=== PATIENT | female | born 1985 | race Caucasian/White ===

== ENCOUNTER 2021-02-03 08:15 | Emergency (ER) | payer OTHER, SELFPAY ==
[2021-02-03 08:58] VITALS: BP 125/90; PULSE 81; RESP 16; TEMP 35.9; O2SAT 100
--- NOTE | 2021-02-03 09:49 | ED.UPPEXIN ---
HPI - Extremity Injury (Upper) General Chief Complaint: Extremity Injury, Upper Stated Complaint: NUMBNESS RIGHT ARM/HAND Time Seen by Provider: 02/03/21 09:27 Source: patient and RN notes reviewed Mode of arrival: ambulatory Limitations: no limitations History of Present Illness HPI narrative: Patient presents today complaining of bilateral tingling of the hands and forearms. 2 days ago, she experienced tingling in her left hand that lasted 1 minute and then resolved. Yesterday she experienced tingling in her right forearm improved. Today she is now experiencing tingling in the bilateral posterior shoulders that is extending down to the forearms and bilateral hands. Denies any additional symptoms. Denies any injuries, recent heavy lifting or twisting. Denies any pain. Denies weakness, chest pain, shortness of breath, headache, abdominal pain, nausea or vomiting, neck pain. She has tried no interventions at home for her symptoms. Related Data Home Medications Medication Instructions Recorded Confirmed norethindrone-ethin estradiol 1 tablet PO DAILY 02/03/21 02/03/21 [Nortrel 0.5/35 (28)] Allergies Allergy/AdvReac Type Severity Reaction Status Date / Time No Known Allergies Allergy Verified 02/03/21 09:04 Review of Systems Review of Systems: Narrative: CONSTITUTIONAL: Denies body aches, fever, chills, or sweats. EYES: Denies visual changes, redness, or discharge. ENT: Denies rhinorrhea, congestion, sore throat, or otalgia. CARDIOVASCULAR: Denies chest pain, palpitations, or edema. RESPIRATORY: Denies cough or dyspnea. GASTROINTESTINAL: Denies abdominal pain, nausea, vomiting, or diarrhea. GENITOURINARY: Denies dysuria or hematuria. SKIN: Denies rash, itching, or wounds. MUSCULOSKELETAL: Denies back pain, joint pain, or myalgia. NEUROLOGIC: Denies headache, numbness, or weakness. + Tingling in the bilateral arms and hands PSYCH: Denies depression or anxiety. [facility] Social History Social History Gender identity (if verbalized by the patient): Female Comments At time of signature, I have reviewed and agree with nursing past medical, surgical, social and family history unless otherwise noted. Please see nursing chart for further information. There is no relevant family history pertinent to the presenting complaint Exam Narrative: Exam Narrative: GENERAL: Well-appearing, well-nourished, and in no acute distress. HEAD: Normocephalic, atraumatic. EYES: EOMI. No redness or drainage. Conjunctivae normal. ENT: Mucous membranes pink and moist. NECK: Normal AROM without pain. Nontender. Supple. No lymphadenopathy. CHEST: No respiratory distress. MUSCULOSKELETAL: No bony tenderness of the cervical, thoracic, or lumbar spine. EXTREMITIES: Full range of motion of bilateral shoulders, elbows, wrist, and all fingers. Handgrips equal and strong. Bicep strength strong against resistance. Distal sensation intact. Capillary refill normal. Radial pulses normal. Trapezius muscles are nontender. SKIN: Warm, dry, no rash. Capillary refill normal. Normal skin turgor. NEURO: No focal deficits. Alert and oriented x3. Gait steady. PSYCH: Very anxious Course Vital Signs Vital signs: Vital Signs Temperature 96.7 F L 02/03/21 08:58 Pulse Rate 81 02/03/21 08:58 Respiratory Rate 16 02/03/21 08:58 Blood Pressure 125/90 02/03/21 08:58 Pulse Oximetry 100 02/03/21 08:58 Temperature 96.7 F L 02/03/21 08:58 Pulse Rate 81 02/03/21 08:58 Respiratory Rate 16 02/03/21 08:58 Blood Pressure 125/90 02/03/21 08:58 Pulse Oximetry 100 02/03/21 08:58 Reviewed. Pt has been instructed to follow up with her PCP regarding her elevated blood pressure today. MDM - Extremity Injury (Upper) Differential Diagnosis Differential diagnosis: Likely other (Cervical radiculopathy, muscle spasm, pinched nerve, anxiety) Critical Care Time Critical Ca
== END 2021-02-03 09:57 | disposition home or self-care (01) ==
PROVIDERS: Emergency Provider Nurse Practitioner
DX: M54.12 Radiculopathy, cervical region (principal)
CPT/HCPCS: 99213; G0463

== ENCOUNTER 2021-09-20 13:15 | Outpatient (CLI) | payer OTHER, SELFPAY ==
--- NOTE | ~2021-09-20 | XR_ITS ---
EXAMINATION: XR lumbar spine 2-3V DATE: 09/20/2021 14:06 INDICATION: Myalgia. TECHNIQUE: 3 views of lumbar spine were obtained. COMPARISON: None. FINDINGS: There is 3 degrees dextrocurvature of lumbar spine. Vertebral body heights and intervertebr al disc heights are normal. The facet joints are normal. IMPRESSION: 1. No etiology for the patient's symptoms. Reviewed, dictated and finalized at location A. R ENERGY ENGINEER
--- NOTE | ~2021-09-20 | XR_ITS ---
EXAMINATION: XR thoracic spine 3V DATE: 09/20/2021 14:06 INDICATION: Myalgia. TECHNIQUE: 3 views of thoracic spine were obtained. COMPARISON: None. FINDINGS: There is 4 degrees dextrocurvature of thoracic spine. Vertebral body heights and interverte bral disc heights are normal. There are small endplate osteophytes at multiple levels in mid thoracic spine. IMPRESSION: 1. Mild thoracic spondylosis. Reviewed, dictated and finalized at location A. AL EQUIPMENT TECHNICIAN
--- NOTE | ~2021-09-20 | XR_ITS ---
EXAMINATION: XR cervical spine 4-5V DATE: 09/20/2021 14:06 INDICATION: Myalgia. TECHNIQUE: 4 views of cervical spine were obtained. COMPARISON: None. FINDINGS: There is 4 degrees levocurvature of cervicothoracic spine. Vertebral body heights and inter vertebral disc heights are normal. The facet joints are normal. No central canal stenosis or preverte bral soft tissue swelling. IMPRESSION: 1. No etiology for the patient's symptoms. Reviewed, dictated and finalized at location A. GER WELDING
== END 2021-09-20 13:16 | disposition home or self-care (01) ==
LOC: ANHIMG 13:26
PROVIDERS: PCP Family Medicine; Visit Provider Nurse Practitioner Family
DX: M79.10 Myalgia, unspecified site (principal); M47.814 Spondylosis without myelopathy or radiculopathy, thoracic region
CPT/HCPCS: 72050; 72072; 72100

== ENCOUNTER 2021-10-21 17:00 | Observation (INO) | payer OTHER, SELFPAY ==
--- NOTE | ~2021-10-21 | MR_ITS ---
EXAMINATION: MR cervical spine wo/w con DATE: 10/22/2021 13:06 INDICATION: Intermittent weakness and numbness. TECHNIQUE: Magnetic resonance imaging (MRI) of the cervical spine was performed without and with 13 m L MultiHance intravenous contrast. Sequences included sagittal and axial T2-weighted FSE, sagittal ST IR FSE, and sagittal and axial T1-weighted FSE. Postcontrast sequences included sagittal and axial T1 -weighted FS FSE. COMPARISON: None FINDINGS: Bone alignment is normal. Vertebral body heights and intervertebral disc heights are normal . The spinal cord signal intensity is normal. The following disc levels are specifically discussed: C2-C3: The disc does not extend beyond the endplate margin. There is no uncovertebral joint osteoarth ritis. There is no facet joint osteoarthritis. There is no neural foraminal stenosis. There is no miko tral canal stenosis. C3-C4: The disc does not extend beyond the endplate margin. There is no uncovertebral joint osteoarth ritis. There is mild bilateral facet joint osteoarthritis. There is no neural foraminal stenosis. The re is no central canal stenosis. C4-C5 through C6-C7: The disc does not extend beyond the endplate margin. There is no uncovertebral j oint osteoarthritis. There is no facet joint osteoarthritis. There is no neural foraminal stenosis. T here is no central canal stenosis. C7-T1: The disc does not extend beyond the endplate margin. There is no uncovertebral joint osteoarth ritis. There is mild bilateral facet joint osteoarthritis. There is no neural foraminal stenosis. The re is no central canal stenosis. IMPRESSION: 1. Normal spinal cord. Reviewed, dictated and finalized at location A. IGERATION SERVICE TECHNICIAN IMPRESSION: 1. Normal spinal cord.
--- NOTE | ~2021-10-21 | CT_ITS ---
EXAMINATION: CTA brain carotid DATE: 10/22/2021 14:36 INDICATION: Slurred speech. Right hand numbness. TECHNIQUE: Computed tomographic angiography (CTA) of the head was performed without and with 100 mL O mnipaque-350 intravenous contrast. CTA of the neck was performed with intravenous contrast. Automated exposure control and iterative reconstruction technique were employed. The dose-length product was 1 593.60 mGy-cm. Maximum intensity projection and volume rendered 3D-reconstructions were created by angélica herrera technologist on a separate workstation. COMPARISON: Brain MRI 10/22/2021, head CT 10/21/2021 FINDINGS: HEAD CTA: There is no intracranial hemorrhage, acute infarction, or abnormal intracranial mass lesion . The ventricles are normal in size. The paranasal sinuses are clear. The mastoid air cells are vanda l. The orbits are normal. Left vertebral artery is dominant. There is no significant stenosis of basi lar artery or the posterior cerebral arteries. There is no significant stenosis of the intracranial i nternal carotid arteries or anterior or middle cerebral arteries. The posterior communicating arterie s are normal. The anterior communicating artery is normal. No aneurysm. NECK CTA: There are no pathologically enlarged lymph nodes. There is no significant stenosis of the v ertebral arteries. There is mild plaque in the proximal internal carotid arteries. There is 0% stenos is of the proximal right internal carotid artery relative to normal distal artery lumen diameter (RAFAEL CET criteria). There is 0% stenosis of the proximal left internal carotid artery relative to normal d istal artery lumen diameter. The bones are unremarkable. IMPRESSION: 1. Normal brain. The small acute infarcts seen by MRI are not visible. 2. No aneurysm or significant intracranial arterial stenosis. 3. 0% stenosis of the proximal internal carotid arteries relative to normal distal artery lumen diame ters (NASCET criteria). Reviewed, dictated and finalized at location A. SCALER IMPRESSION: 1. Normal brain. The small acute infarcts seen by MRI are not visible. 2. No aneurysm or significant intracranial arterial stenosis. 3. 0% stenosis of the proximal internal carotid arteries relative to normal dis cindy artery lumen diameters (NASCET criteria).
--- NOTE | ~2021-10-21 | CT_ITS ---
EXAMINATION: CT brain wo con INDICATION: Aphasia, dizziness, numbness of the hands and feet COMPARISON: None TECHNIQUE: Standard unenhanced head CT. The dose-length product (DLP) was 605.33 mGy-cm. The mA was a djusted according to patient size. Iterative reconstruction technique was employed. FINDINGS: There is no intracranial hemorrhage, acute infarction, or abnormal mass lesion. The ventric les are normal. There is no abnormal mass effect or midline shift. The wilkes-white matter differentiat ion is normal. The basal cisterns are patent. The orbits are normal. The paranasal sinuses, mastoids and calvarium are normal. IMPRESSION: 1. No acute intracranial abnormality. Reviewed, dictated and finalized at location F. ICAL ADMINISTRATOR
--- NOTE | ~2021-10-21 | MR_ITS ---
EXAMINATION: MR brain/brain stem wo/w con DATE: 10/22/2021 13:06 INDICATION: Stroke. Slurred speech. Hand weakness. TECHNIQUE: Magnetic resonance imaging (MRI) of the brain and brainstem was performed without and with 13 mL MultiHance intravenous contrast. Sequences included sagittal and axial T1-weighted FLAIR, axia l T1-weighted FSE, axial diffusion-weighted FS EPI, sagittal T2-weighted FLAIR, axial T2*-weighted GR E, axial T2-weighted FLAIR Propeller, and axial T2-weighted Propeller. Postcontrast sequences include d axial, coronal, and sagittal T1-weighted FSE. Apparent diffusion coefficient (ADC) maps were create d. COMPARISON: Head CT 10/21/2021 FINDINGS: There are a few acute cortical infarcts involving the right frontal and parietal lobes. The re are scattered areas of nonspecific increased T2-weighted signal intensity in the cerebral white ma tter. There is no intracranial hemorrhage or abnormal mass lesion. The ventricles are normal in size . The orbits are normal. The paranasal sinuses are clear. The mastoid air cells are normal. IMPRESSION: 1. 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 2. Mild nonspecific cerebral white matter disease. The differential diagnosis includes premature chronometer assembler and adjuster macie small vessel ischemic disease (especially if the patient has cardiovascular risk factors), demyel inating disease such as multiple sclerosis, drug abuse, vasculitis, or reactive astrocytosis (gliosis ) secondary to nonspecific etiology. Reviewed, dictated and finalized at location A. GENCY ROOM SPECIALIST IMPRESSION: 1. 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 2. Mild nonspecific cerebral white matter disease. The differential diagnosis i ncludes premature chronic small vessel ischemic disease (especially if the leisa ent has cardiovascular risk factors), demyelinating disease such as multiple sc lerosis, drug abuse, vasculitis, or reactive astrocytosis (gliosis) secondary t o nonspecific etiology.
--- NOTE | ~2021-10-21 | XR_ITS ---
EXAMINATION: XR chest 2V DATE: 10/21/2021 22:02 INDICATION: Strokelike symptoms TECHNIQUE: PA and lateral views of the chest are obtained. COMPARISON: None available FINDINGS: The lungs are free of acute opacities. There is no pleural effusion or pneumothorax. The ca rdiomediastinal silhouette is normal. The visualized bones and soft tissues are unremarkable. IMPRESSION: 1. No acute cardiopulmonary abnormality. Reviewed, dictated and finalized at location F. RAFT ENGINEER
--- NOTE | ~2021-10-21 | US_ITS ---
EXAMINATION: US carotid duplex BI DATE: 10/22/2021 13:09 INDICATION: Acute infarcts involving the right frontal and parietal lobes. Transient ischemic attack. TECHNIQUE: Grayscale, color Doppler, and pulsed Doppler images of the cervical carotid arteries were obtained. The degree of vessel stenosis is placed in one of the following categories: normal, <50%, 5 0-69%, >=70% but less than near-occlusion, near-occlusion, or total occlusion. Note that percent sten osis relative to normal distal artery lumen diameter is indirectly measured from velocity measurement s as described by Demetrius, et al. Radiology 2003; 229:340-346. COMPARISON: None. FINDINGS: RIGHT: The right common carotid artery (CCA) peak systolic velocity (PSV) is 89 cm/s. The right internal car otid artery (ICA) PSV is 108 cm/s. The right ICA end-diastolic velocity (EDV) is 44 cm/s. The right I CA/CCA PSV ratio is 1.2. Grayscale and color Doppler images yield an estimate of <50% diameter reduct ion from plaque in the ICA. There is antegrade flow in the right vertebral artery. LEFT: The left CCA PSV is 105 cm/s. The left ICA PSV is 73 cm/s. The left ICA EDV is 30 cm/s. The left ICA/ CCA PSV ratio is 0.7. Grayscale and color Doppler images yield an estimate of <50% diameter reduction from plaque in the ICA. There is antegrade flow in the left vertebral artery. IMPRESSION: 1. <50% stenosis in the right internal carotid artery. 2. <50% stenosis in the left internal carotid artery. Reviewed, dictated and finalized at location A. H MACHINE OPERATOR
[2021-10-21 17:08] VITALS: BP 142/94; PULSE 100; RESP 18; TEMP 36.4; O2SAT 98
[2021-10-21 19:22] VITALS: BP 198/82; PULSE 112; RESP 16; O2SAT 99
--- NOTE | 2021-10-21 21:53 | ECG_ITS ---
Measurements Intervals [place] Rate: 77 P: 57 HI: 137 QRS: 54 QRSD: 84 T: 29 QT: 367 QTc: 416 Interpretive Statements SINUS RHYTHM BASELINE ARTIFACT- I, II, III, AVR, AVL, AVF, V1-V6 NORMAL ECG Electronically Signed On 10-22-2021 6:41:46 CHIEF METEOROLOGIST by Clive Valencia D.O.
[2021-10-21 22:35] LABS: Basophils Percent Auto 0.4 % (0.2-1.2); Eosinophils Percent Auto 0.1 % (0-4.4); Hematocrit 39.6 % (37.0-47.0); Hemoglobin 13.3 g/dL (12.0-15.0); Immature Granulocyte Absolute 0.01 K/mm3 (0.00-0.031); Immature Granulocyte Percent A 0.1 % (0-0.5); Lymphocytes Absolute Auto 2.11 K/mm3 (0.9-3.2); Lymphocytes Percent Auto 26.5 % (18.3-44.2); Mean Corpuscular HGB Conc 33.6 g/dl (32-36); Mean Corpuscular Hemoglobin 31.5 pg (26-34); Mean Corpuscular Volume 93.8 fl (80-100); Mean Platelet Volume 10.7 fl (7.4-10.4); Monocytes Absolute Auto 0.4 K/mm3 (0.1-0.6); Monocytes Percent Auto 5.5 % (2.6-8.5); Neutrophils Absolute Auto 5.4 K/mm3 (1.3-6.7); Neutrophils Percent Auto 67.4 % (45.5-73.1); Platelet Count Result 248 k/mm3 (150-375); Red Blood Count 4.22 M/mm3 (4.2-5.4); Red Cell Distribution Width 11.2 % (11.5-14.5)
[2021-10-21 22:46] LABS: INR 1.1; Prothrombin Time 13.7 Seconds (11.1-14.7)
[2021-10-21 22:47] LABS: Partial Thromboplastin Time 25.6 SECONDS (22.3-36.8)
[2021-10-21 22:48] LABS: Alanine Aminotransferase 14 U/L (4-35); Albumin Level 4.8 g/dL (3.5-5.1); Alkaline Phosphatase 62 U/L (38-126); Anion Gap 7 mmol/L (8-16); Aspartate Amino Transferase 22 U/L (14-36); Bilirubin,Total 0.3 mg/dL (0.2-1.3); Blood Urea Nitrogen 10 mg/dL (7-17); Calcium 9.5 mg/dL (8.4-10.2); Carbon Dioxide 27 mmol/L (22-30); Chloride 106 mmol/L (98-107); Estimated CRCL calculation 90 ml/min; Estimated Glomerular Filt Rate > 60; Glucose 121 mg/dL (65-110); Potassium 3.6 mmol/L (3.4-5.0); Sodium 140 mmol/L (137-145)
[2021-10-21 22:59] LABS: Troponin I < 0.012 ng/mL (0.000-0.034)
[2021-10-21 23:37] LABS: Add Urine Microscopic? NO; Appearance Urine Clear (Clear); Bilirubin Urine Negative (Negative); Blood Urine Negative (Negative); Color Urine Colorless (Yellow); Glucose Urine UA Negative (Negative); Ketones Urine Negative (Negative); Leukocyte Esterase Ur Negative LEU/UL (Negative); Nitrate Urine Negative (Negative); Protein Urine Negative (Negative); Urobilinogen Urine Negative mg/dL (<2.0)
[2021-10-21 23:47] LABS: Specific Grav Ur 1.002 (1.001-1.035)
[2021-10-22] VITALS (9 sets, daily range): BP systolic 100–111; BP diastolic 57–72; PULSE 57–103; RESP 16–18; TEMP 36.4–36.9; O2SAT 99–100; BMI 24.2
--- NOTE | 2021-10-22 | ECHO_ITS ---
Patient Info Name: Stormy Mckenzie Age: 36 years : 1985 Gender: Female Ht: 66 in Wt: 149 lbs BSA: 1.78 m2 HR: 85 bpm BP: 110 / 68 mmHg Heart Rhythm: Sinus Rhythm Technical Quality: Fair Exam Date: 10/22/2021 1:41 PM Exam Location: [facility] Patient Status: Inpatient Admit Date: 10/22/2021 Staff Ordering Physician: Dane Camacho MD It Security Project Manager: Amie Dale RDCS Attending Provider: Jena Lopez DO Referring Physician: Janice HAMPTON; Exam Type: CA echo doppler color flow Study Info Indications - TIA Complete two-dimensional, color flow and Doppler transthoracic echocardiogram is performed. Summary 1. Complete two-dimensional, color flow and Doppler transthoracic echocardiogram is performed. 2. Normal echocardiogram. Left Ventricle Left ventricular chamber dimension is normal. Left ventricular systolic function is normal, estimated at 60-65%. The left ventricular diastolic function is normal. Right Ventricle Right ventricular chamber dimension is normal. Left Atria Left atrial chamber dimension is normal. Right Atria Right atrial chamber dimension is normal. Aortic Valve The aortic valve is normal. Pulmonic Valve The pulmonic valve is normal. Mitral Valve The mitral valve has normal leaflets. Tricuspid Valve The tricuspid valve leaflets are normal. Pericardium/Pleural The pericardium appears normal. Aorta The aortic root size at the sinus of Valsalva is normal. Left Ventricular Outflow Tract Name Value Normal LVOT 2D LVOT Diameter 2.0 cm LVOT Doppler LVOT Peak Gradient 4 mmHg LVOT Mean Gradient 2 mmHg LVOT VTI 19 cm LVOT VTI/AV VTI Ratio 0.8 LVOT Stroke Volume 62 ml LVOT CO 4.5 l/min LVOT CI 2.5 l/min/m2 Pulmonic Valve Name Value Normal RVOT Doppler RVOT Peak Gradient 3 mmHg PV Doppler PV Peak Gradient 4 mmHg Mitral Valve Name Value Normal MV Doppler MV Decel Arthur 601 cm/s2 MV PHT 40 ms MV Area (PHT) 5.5 cm2 4.0-5.0 MV Diastolic Function MV E Peak Velocity 83 cm/s MV A Peak Velocity 60 cm/s
--- NOTE | 2021-10-22 00:53 | ED.GENADULT ---
HPI - General Adult General Chief complaint: Dizziness Stated complaint: slurred speech, aphasia, dizziness, facial numbnes Time Seen by Provider: 10/21/21 21:30 History of Present Illness HPI narrative: Patient is a 36-year-old female who presents ER with neurologic concerns. She reports earlier today at work she had numbness of her left hand that caused her to be floppy. She also had slurred speech and a coworker told her they thought she may have some facial weakness on the right side. Symptoms lasted about 1 minute. She reports that she has history of intermittent numbness to her extremities has been ongoing over the last 6 months. She has had x-rays of her spine performed. She is recently supposed to have a CT scan of her spine performed. She has never had an MRI or scan of her brain. No headache/fever/chills. Related Data Home Medications Medication Instructions Recorded Confirmed norethindrone-ethin estradiol 1 tablet PO DAILY 02/03/21 10/22/21 [Nortrel 0.5/35 (28)] Allergies Allergy/AdvReac Type Severity Reaction Status Date / Time No Known Allergies Allergy Verified 02/03/21 09:04 Review of Systems Review of Systems: All systems reviewed & are unremarkable except as noted in HPI and below Constitutional: Constitutional: Denies chills, Denies fever(s) and Denies weakness ENT: Denies nasal congestion and Denies sore throat Cardiovascular: Cardiovascular: Denies chest pain, Denies rapid heart rate and Denies radiating jaw, neck or arm pain Respiratory: Respiratory: Denies cough, Denies dyspnea and Denies wheezing Gastrointestinal: Gastrointestinal: Denies abdominal pain, Denies nausea and Denies vomiting Neurologic: Denies headache(s), Reports focal weakness and Reports numbness Comments: Slurred speech [facility] Past Medical History Medical History (Updated 10/22/21 @ 07:23 by Grady Whitaker MD) Healthy female adult Surgical History Surgical History (Updated 10/22/21 @ 01:14 by Grady Whitaker MD) No history of previous surgery Family History Family History (Updated 10/22/21 @ 05:40 by Aleisha Gonzalez RN) Father Arthritis Mother Arthritis Depression Fibromyalgia Social History Social History Smoking status: Never smoker Second hand tobacco smoke exposure: No Alcohol intake: never Substance use: current Substance use type: marijuana Last use: 10/17/21 Gender identity (if verbalized by the patient): Female Spiritual care concerns: No Exam Narrative: GENERAL: Well-appearing, well-nourished, and in no acute distress. HEAD: Normocephalic, atraumatic. ENT: Mucous membranes moist. CHEST: Clear to auscultation. No respiratory distress. HEART: Regular rate and rhythm. Normal peripheral pulses. ABDOMEN: Soft, nontender, nondistended. EXTREMITIES: Normal range of motion. No edema. SKIN: Warm, dry, no rash. NEURO: Alert and oriented x3. No upper or lower extremity drift. Normal finger-nose testing. Cranial nerves II through XII intact. No expressive aphasia or dysarthria. PSYCH: Normal mood and affect. Course Course Emergency Course: Admit to hospitalist service. Patient does have strokelike symptoms but I am more concerned that she may have MS. Will require MRI of the head and neck. Vital Signs Vital signs: Vital Signs Temperature 97.5 F L 10/21/21 17:08 Pulse Rate 100 10/21/21 17:08 Respiratory Rate 18 10/21/21 17:08 Blood Pressure 142/94 H 10/21/21 17:08 Pulse Oximetry 98 10/21/21 17:08 Temperature 97.6 F 10/22/21 05:24 Pulse Rate 71 10/22/21 05:24 Respiratory Rate 18 10/22/21 05:53 Blood Pressure 110/68 10/22/21 05:24 Pulse Oximetry 99 10/22/21 05:53 Medical Decision Making Vital Signs Vital Signs: Vital Signs Temperature 97.5 F L 10/21/21 17:08 Pulse Rate 100 10/21/21 17:08 Respiratory Rate 18 10/21/21 17:08 Blood Pressure 142/
--- NOTE | 2021-10-22 05:00 | ADMGEN ---
This patient, Stormy Mckenzie, was admitted to Medical Room 343-01. Patient/family oriented to hospital policies and general routines including ID bracelet, bed and alarms, visiting hours, pain management, procedures, bathroom and other care routines, personal items, smoking policy, room service/diet, and visiting hours. Information on how to activate the Rapid Response Team has been discussed. Patient/Family are encouraged to report perceived risks to care and to ask questions if they do not understand what they are told or what they should do.
[2021-10-22] MEDS: ACETAMINOPHEN 325 MG TABLET 650 MG PO (05:31)
--- NOTE | 2021-10-22 10:30 | PM.IMHP ---
H&P: HPI History of Present Illness Date/Time: 10/22/21 10:30 Chief Complaint: Numbness of face Narrative: 36 years old female with no significant past medical history was admitted with complaint of having an episode at work lasting few minutes that involved weakness of the left hand and forearm, slurred speech and numbness of the face. This whole episode lasted for couple of minutes and the patient on arrival in the ER did not have any complaints. At present time patient is lying comfortably in the bed patient denies any numbness, tingling and weakness. Patient denies any shortness of breath or chest pain. Patient denies any nausea, vomiting, abdominal pain. Mood stable. Review of Systems Review of Systems: All systems reviewed & are unremarkable except as noted in HPI and below (the history and physical examination.) [facility] Past Medical History Medical History Healthy female adult Surgical History Surgical History No history of previous surgery Family History Family History Father Arthritis Mother Arthritis Depression Fibromyalgia Social History Social History Smoking status: Never smoker Second hand tobacco smoke exposure: No Alcohol intake: never Substance use: current Substance use type: marijuana Last use: 10/17/21 Gender identity (if verbalized by the patient): Female Spiritual care concerns: No Meds Home Medications and Allergies Home Medications Medication Instructions Recorded Confirmed Type norethindrone-ethin estradiol 1 tablet PO DAILY 02/03/21 10/22/21 History [Nortrel 0.5/35 (28)] Allergies Allergy/AdvReac Type Severity Reaction Status Date / Time No Known Allergies Allergy Verified 02/03/21 09:04 Vital Signs Vital Signs - 24 hr 10/21/21 17:08 10/21/21 19:22 10/22/21 03:47 Temperature 36.4 C L Pulse Rate 100 112 H 82 Respiratory Rate 18 16 18 Blood Pressure 142/94 H 198/82 H 109/58 L Pulse Oximetry 98 99 10/22/21 05:24 10/22/21 05:53 Temperature 36.4 C Pulse Rate 71 Respiratory Rate 18 18 Blood Pressure 110/68 Pulse Oximetry 99 99 Exam Narrative: ENERAL: Well-appearing, well-nourished, and in no acute distress. HEAD: Normocephalic, atraumatic. ENT: Mucous membranes moist. CHEST: Clear to auscultation. No respiratory distress. HEART: Regular rate and rhythm. Normal peripheral pulses. ABDOMEN: Soft, nontender, nondistended. EXTREMITIES: Normal range of motion. No edema. SKIN: Warm, dry, no rash. NEURO: Alert and oriented x3. No upper or lower extremity drift. Normal finger-nose testing. Cranial nerves II through XII intact. No expressive aphasia or dysarthria. PSYCH: Normal mood and affect. H&P: Results Labs Labs: Short CBC 10/21/21 Range/Units 22:22 WBC 8.0 (4.5-10.0) K/mm3 Hgb 13.3 (12.0-15.0) g/dL Hct 39.6 (37.0-47.0) % Plt Count 248 (150-375) k/mm3 BMP 10/21/21 22:22 Sodium 140 Potassium 3.6 Chloride 106 Carbon Dioxide 27 BUN 10 Creatinine 0.70 Glucose 121 H Calcium 9.5 Cardiac Enzymes 10/21/21 Range/Units 22:22 Troponin I < 0.012 (0.000-0.034) ng/mL Liver Function 10/21/21 Range/Units 22:22 Total Bilirubin 0.3 (0.2-1.3) mg/dL AST 22 (14-36) U/L ALT 14 (4-35) U/L Alkaline Phosphatase 62 (38-126) U/L Albumin 4.8 (3.5-5.1) g/dL Urine 10/21/21 Range/Units 23:29 Urine Color Colorless (Yellow) Urine Appearance Clear (Clear) Urine pH 7.0 (5.0-9.0) Ur Specific [place] 1.002 (1.001-1.035) Urine Protein Negative (Negative) mg/dL Urine Glucose (UA) Negative (Negative) mg/dL Assessment and Plan Assessment and plan (1) TIA (transient ischemic attack): Code(s): G45.9 - Transient cerebral isch
[2021-10-22 10:46] LABS: Cholesterol 162 mg/dL (0-200); HDL Direct 48 mg/dL; Triglycerides 106 mg/dL (<150)
[2021-10-22 10:57] LABS: LDL Cholesterol Direct 94 mg/dL
[2021-10-22] MEDS: ASPIRIN 81 MG ENTERIC TABLET PO (13:26)
[2021-10-22] MEDS: HEPARIN SODIUM 5,000 UNITS/ML VIAL 5000 UNITS SUB-Q (20:23)
[2021-10-23 00:05] VITALS: PULSE 71
[2021-10-23 04:04] VITALS: PULSE 64
[2021-10-23 05:50] VITALS: BP 110/54; PULSE 92; RESP 16; TEMP 36.6; O2SAT 100
[2021-10-23 08:00] VITALS: PULSE 66
[2021-10-23] MEDS: ASPIRIN 81 MG ENTERIC TABLET PO (08:47)
[2021-10-23] MEDS: CLOPIDOGREL BISULFATE 75 MG TABLET PO (08:47)
[2021-10-23] MEDS: ATORVASTATIN 20 MG TABLET PO (08:47)
[2021-10-23] MEDS: HEPARIN SODIUM 5,000 UNITS/ML VIAL 5000 UNITS SUB-Q (08:47)
--- NOTE | 2021-10-23 09:53 | PM.DS ---
DS: Admitting Diagnosis Discharge Date October 23, 2021 Admitting Diagnosis TIA DS: Discharge Diagnosis Discharge Diagnosis (1) TIA (transient ischemic attack): Code(s): G45.9 - Transient cerebral ischemic attack, unspecified Status: Acute Assessment and Plan: Will do neuro checks and workup TIA. Neurology on consult DS: Summary Hospital Course Reason for hospitalization: TIA Hospital Course: 36 years old female was admitted complains had tingling and numbness and dysarthria. Lasting for few minutes. Patient exam remains normal during the stay in the hospital MRI brain showed possible acute stroke other workup was negative. Today patient is feeling better so patient discharged back home in stable condition. Scheduled with primary care physician and Neurology outpatient next week. Condition dime-sized stable. Status at Discharge Cognitive/behavioral status at discharge: Stable Functional status at discharge: independent ambulation Time Spent with Patient Time attestation: Total time spent providing and/or coordinating discharge services: Time spent: Less than 30 minutes Exam Narrative: ENERAL: Well-appearing, well-nourished, and in no acute distress. HEAD: Normocephalic, atraumatic. ENT: Mucous membranes moist. CHEST: Clear to auscultation. No respiratory distress. HEART: Regular rate and rhythm. Normal peripheral pulses. ABDOMEN: Soft, nontender, nondistended. EXTREMITIES: Normal range of motion. No edema. SKIN: Warm, dry, no rash. NEURO: Alert and oriented x3. No upper or lower extremity drift. Normal finger-nose testing. Cranial nerves II through XII intact. No expressive aphasia or dysarthria. PSYCH: Normal mood and affect. DS: Data Data Completed and Pending Labs on day of discharge: Labs from last 24 hours 10/21/21 22:21 Triglycerides 106 Cholesterol 162 LDL Cholesterol Direct 94 HDL Direct 48 Discharge Plan Discharge Attending physician on discharge: Dane Camacho Consulting providers: Raul Cole Discharging Clinician: Dane Camacho Patient Disposition: Home, Self-Care Activity: as tolerated Diet: as tolerated and heart healthy Patient Instructions: Antibiotic Form Stand Alone Forms: General Discharge Information Follow-up/Referrals: Aguila Dawson MD [Primary Care Provider] - Raul Cole MD [Physician] - Discharge Medications: New atorvastatin 20 mg Tablet 20 mg PO DAILY Qty: 30 RF: 0 clopidogrel 75 mg Tablet 75 mg PO QAM Qty: 30 RF: 0 aspirin 81 mg Tablet,Delayed Release (Dr/Ec) 81 mg PO QAM Qty: 30 RF: 0 Continued Nortrel 0.5/35 (28) 0.5-35 mg-mcg tablet 1 tablet PO DAILY RF: 0 Date of admission: 10/22/21 04:16 Primary Care Provider: Aguila Dawson Admitting Provider: Jena Lopez Attending physician on admission: Jena Lopez Condition: Stable
[2021-10-23 12:00] VITALS: PULSE 106
--- NOTE | 2021-10-23 13:29 | WPDNEURCNPN ---
Assessment and Plan Additional Plan 1. Possibility of intracranial lesion with the question regarding the possible demyelinating disease versus his stroke. MRI of the cervical spine has been done will need the MRI of thoracic spine and then a spinal tap. 2. Head neck CTA has been done with no evidence of aneurysm or vasculopathy 3. All routine x-rays are negative. Advised her to have MRI of thoracic spine, his spinal fluid studies and EMG nerve conduction study of her upper extremities all those studies can be done as an outpatient she can be discharged today Consult date: 10/23/21 HPI: Stormy Mckenzie is a 36 year old female admitted to the hospital for the complaints of numbness of the face along with the weakness of the left hand and forearm slurred speech lasting for several minutes with no history of such symptomatology in the past, ongoing history of no smoking, no alcohol consumption but use of marijuana and restricted she is not allergic to any medications, no history of nausea vomiting blood in stool black stool no history of cough shortness of breath pain in chest abdominal history of hematuria or dysuria but concern about multiple symptomatology and the possibility of demyelinating disease, concern about the possibility of anxiety and also concerned about the numbness in her upper extremities Review of Systems Review of Systems: All systems reviewed & are unremarkable except as noted in HPI and below PMFSH Past Medical History Medical History Healthy female adult Surgical History Surgical History No history of previous surgery Family History Family History Father Arthritis Mother Arthritis Depression Fibromyalgia Social History Social History Smoking status: Never smoker Second hand tobacco smoke exposure: No Alcohol intake: never Substance use: current Substance use type: marijuana Last use: 10/17/21 Gender identity (if verbalized by the patient): Female Spiritual care concerns: No Meds Home Medications and Allergies Home Medications Medication Instructions Recorded Confirmed Type norethindrone-ethin estradiol 1 tablet PO DAILY 02/03/21 10/22/21 History [Nortrel 0.5/35 (28)] Allergies Allergy/AdvReac Type Severity Reaction Status Date / Time No Known Allergies Allergy Verified 02/03/21 09:04 Vital Signs Vital Signs - 24 hr 10/22/21 14:51 10/22/21 16:00 10/22/21 19:34 Temperature 36.9 C 36.4 C Pulse Rate 78 81 88 Respiratory Rate 16 16 Blood Pressure 111/72 100/57 L Pulse Oximetry 100 99 10/22/21 20:04 10/22/21 20:23 10/23/21 00:05 Temperature Pulse Rate 57 L 71 Respiratory Rate 16 Blood Pressure Pulse Oximetry 99 10/23/21 04:04 10/23/21 05:50 10/23/21 08:00 Temperature 36.6 C Pulse Rate 64 92 66 Respiratory Rate 16 Blood Pressure 110/54 L Pulse Oximetry 100 10/23/21 12:00 Temperature Pulse Rate 106 H Respiratory Rate Blood Pressure Pulse Oximetry Exam Const: General: cooperative, alert, awake, anxious and uncomfortable Nutritional Appearance: average body habitus Orientation/consciousness: oriented to person, oriented to place and oriented to time Limitations: no limitations HENMT: Head: normal to inspection and normocephalic Ears: hearing grossly normal bilaterally General nose exam: Normal external nose present Face and sinus: normal facial exam Mouth: Yes Normal oral and palatal mucosa present Eyes: General: appearance normal, both eyes and all related structures Visual Flores: normal visual flores by confrontation Alignment and Position: alignment normal Periorbital: periorbital findings normal Eyelids: eyelids normal Conjunctivae: conjunctivae normal Sclera: sclerae normal Cornea: corneas nor
== END 2021-10-23 16:27 | disposition home or self-care (01) ==
LOC: ANHED 21:39 → ANH3MED 10-22 07:23
PROVIDERS: Admitting Provider Internal Medicine; Emergency Provider Emergency Medicine; PCP Family Medicine; Visit Provider Internal Medicine
DX: G45.9 Transient cerebral ischemic attack, unspecified (principal); G81.94 Hemiplegia, unspecified affecting left nondominant side; R47.81 Slurred speech
CPT/HCPCS: 36415; 70450; 70496; 70498; 70553; 71046; 72156; 80053; 80061; 81003; 84484; 85025; 85610; 85730; 93005; 93306; 93880; 96372; 99285; A9270; A9577; G0378; J1644; Q9967

== ENCOUNTER 2021-12-15 06:37 | Outpatient (CLI) | payer OTHER, SELFPAY ==
--- NOTE | ~2021-12-15 | MR_ITS ---
EXAMINATION: MR thoracic spine wo/w con EXAM DATE: 12/15/2021 09:03 INDICATION: TIA back pain, tingling and numbness. TECHNIQUE: Multi-sequential, multiplanar MR images of the thoracic spine were obtained without contra st. Sagittal T1, T2, T2 fat saturation, axial T2 weighted images reviewed. Axial T1 weighted sequenc e. Patient was then injected with 13 mL Multihance intravenous contrast and reimaged. Postcontrast axial and sagittal T1-weighted fat saturation sequences were obtained. Correlation is made to cervic al spine MR 10/22/2021. FINDINGS: Ill-defined thoracic cord on the T2-weighted sequences, failure fat saturation limiting con fident evaluation of thoracic spinal cord. Upper thoracic spinal cord signal confirmed normal on rece nt prior cervical MRI. The vertebral bodies are aligned in the AP dimension. Mild mid thoracic disc d isease. Mild thoracic facet arthropathy. There are no areas of abnormal enhancement on the post contr ast images. Paraspinal soft tissue is unremarkable. IMPRESSION: Limited exam. Mild thoracic spondylosis. Reviewed, dictated and finalized at location G. ER DELIVERER
--- NOTE | ~2021-12-15 | MR_ITS ---
EXAMINATION: MR lumbar spine wo/w con EXAM DATE: 12/15/2021 09:03 INDICATION: TIA . Back pain. TECHNIQUE: Multi-sequential, multiplanar MR images of the lumbar spine were obtained without contrast . Sagittal T1, T2, T2 fat saturation images. Axial T2 weighted images. Axial T1 weighted sequence. Patient was then injected with 13 mL Multihance intravenous contrast and reimaged. Postcontrast axi al and sagittal T1-weighted fat saturation sequences were obtained. There is no prior study for declan ca. FINDINGS: The conus medullaris terminates at the T12-L1 level and has normal signal intensity and mor phology. Mild disc disease L5-S1. The vertebral body and disc heights are otherwise well maintained. The vertebral bodies are aligned in the AP dimension. There are no areas of abnormal enhancement o n the post contrast images. Level by level evaluation: T12-L1: Disc does not extend beyond the endplate margin. Facet arthropathy: Mild. Neural foraminal stenosis: No stenosis. Central canal stenosis: No stenosis. L1-L2: Disc does not extend beyond the endplate margin. Facet arthropathy: Mild. Neural foraminal stenosis: No stenosis. Central canal stenosis: No stenosis. L2-L3: Disc does not extend beyond the endplate margin. Facet arthropathy: Mild. Neural foraminal stenosis: No stenosis. Central canal stenosis: No stenosis. L3-L4: Disc does not extend beyond the endplate margin. Facet arthropathy: Mild to moderate. Neural foraminal stenosis: No stenosis. Central canal stenosis: No stenosis. L4-L5: Disc does not extend beyond the endplate margin. Facet arthropathy: Mild to moderate. Neural foraminal stenosis: No stenosis. Central canal stenosis: No stenosis. L5-S1: There is a mild diffuse disc bulge. Facet arthropathy: Mild. Neural foraminal stenosis: Minimal left. Central canal stenosis: No stenosis. IMPRESSION: Mild lumbar spondylosis. Reviewed, dictated and finalized at location G. RMATION SYSTEMS SUPERVISOR IMPRESSION: Mild lumbar spondylosis.
--- NOTE | ~2021-12-15 | MR_ITS ---
EXAMINATION: MR brain/brain stem wo/w con EXAM DATE: 12/15/2021 09:03 INDICATION: TIA,headaches. Numbness and tingling in both arms. Acute infarcts on prior examination. TECHNIQUE: Magnetic resonance imaging (MRI) of the brain/brain stem obtained without contrast. Sagit cindy T1, axial diffusion, gradient echo (T2*), T1, T2, FLAIR sequences obtained. Patient was then inj ected with 13 cc intravenous Multihance contrast. Axial and coronal postcontrast T1 weighted sequence s obtained. Comparison is made to prior examination from 10/22/2021. FINDINGS: Difficult to confidently identify the previously seen several tiny right frontoparietal cor tical infarctions, should now be subacute in stage. There are no areas of restricted diffusion to sug gest acute infarction. There is no acute hemorrhage seen on the T2*, a hemosiderin sensitive sequenc e. No intraparenchymal brain mass. The ventricles are normal in size. There are no extra-axial malia ections. Flow voids are seen in the cerebral arteries on the T2-weighted sequences consistent with t heir expected patency. The orbits are unremarkable. Soft tissue is unremarkable. There are no are as of abnormal enhancement on the postcontrast images. IMPRESSION: 1. Unremarkable brain MRI examination. Reviewed, dictated and finalized at location G. OID MILL OPERATOR
[2021-12-15 07:09] LABS: Estimated Glomerular Filt Rate > 60
== END 2021-12-15 06:38 | disposition home or self-care (01) ==
LOC: ANHIMG 06:44
PROVIDERS: PCP Family Medicine; Visit Provider Family Medicine
DX: G45.9 Transient cerebral ischemic attack, unspecified (principal); M47.896 Other spondylosis, lumbar region; M47.894 Other spondylosis, thoracic region
CPT/HCPCS: 70553; 72157; 72158; A9577

== ENCOUNTER 2022-07-22 09:50 | Outpatient (CLI) | payer OTHER, SELFPAY ==
--- NOTE | ~2022-07-22 | US_ITS ---
EXAMINATION: US venous doppler [facility] DATE: 07/22/2022 10:36 INDICATION: Factor V Leiden mutation TECHNIQUE: Narvaez scale images without and with compression and Doppler images of the bilateral lower e xtremity veins were obtained. COMPARISON: None FINDINGS: The right common femoral vein, profunda femoral vein, femoral vein, popliteal vein, peroneal trunk, p osterior tibial veins, and greater saphenous vein are patent. The left common femoral vein, profunda femoral vein, femoral vein, popliteal vein, peroneal trunk, po sterior tibial veins, and greater saphenous vein are patent. IMPRESSION: 1. Patent bilateral lower extremity veins. No evidence of deep venous thrombosis. Reviewed, dictated and finalized at location A. IMPRESSION: 1. Patent bilateral lower extremity veins. No evidence of deep venous thrombosi s.
== END 2022-07-22 09:51 | disposition home or self-care (01) ==
PROVIDERS: PCP Family Medicine
DX: G45.9 Transient cerebral ischemic attack, unspecified (principal); Q21.1 Atrial septal defect; D68.51 Activated protein C resistance
CPT/HCPCS: 93970

== ENCOUNTER 2022-09-09 00:55 | Day surgery (SDC) | payer OTHER, SELFPAY ==
[2022-09-05 15:45] VITALS: BMI 24.2
--- NOTE | 2022-09-09 08:14 | P.PNAN_ITS ---
Anes - Initial Pre Proc Eval Procedure: Operation Date: 09/09/22 10:30 Proposed Procedures p Esophagogastroduodenoscopy - Kiran Salgado MD Date/Time: 09/09/22 08:14 Surgeon: Kiran Salgado MD Pre Op Diagnosis: gerd Patient Data Age: 37 Gender: F Height: 1.68 m Weight: 68 kg Allergies Allergy/AdvReac Type Severity Reaction Status Date / Time No Known Allergies Allergy Verified 09/09/22 09:11 Home Medications Medication Instructions Recorded Confirmed Type aspirin 81 mg tablet,delayed 81 mg PO QAM #30 tabs 10/23/21 09/05/22 Rx release atorvastatin 20 mg tablet 20 mg PO DAILY #30 tabs 10/23/21 09/05/22 Rx acidophilus 100 million 1 cap PO DAILY 09/05/22 09/05/22 History cell-pectin, citrus 10 mg capsule famotidine 20 mg tablet 20 mg PO DAILY 09/05/22 09/05/22 History [id number]-epa-fish 1 tablet PO DAILY 09/05/22 09/05/22 History oil 200 mcg-1,000 unit-25 mg tab,chew multivitamin 1 tablet PO DAILY 09/05/22 09/05/22 History pantoprazole 40 mg tablet,delayed 40 mg PO QAM 09/05/22 09/05/22 History release Patient hx anesthesia problems: none Family hx anesthesia problems: none Results Review: All pre-operative results and documents have been reviewed as part of the pre- operative evaluation. [facility] [place] Past Medical History Medical History (Updated 09/09/22 @ 08:15 by Edgardo De Jesus DO) Anxiety Factor V Leiden GERD (gastroesophageal reflux disease) PFO (patent foramen ovale) TIA (transient ischemic attack) Surgical History Surgical History No history of previous surgery Family History Family History Father Arthritis Mother Arthritis Depression Fibromyalgia Social History Social History Smoking status: Never smoker Second hand tobacco smoke exposure: No Alcohol intake: never Substance use: former Substance use type: marijuana Last use: 12/26/21 Living arrangements: with family Gender identity (if verbalized by the patient): Female Spiritual care concerns: No Anes - Eval Final PreProcedure Day of Procedure 09/09/22 08:14 Patient weight: normal Heart: regular rate and rhythm Lungs: clear to auscultation and normal air movement Airway: Mallampati scale class II Neurological: alert and oriented Last oral intake: >/= 8 hours ASA classification: III Emergent: no Anesthetic plan: proceed Anesthesia type and monitoring: general GIVS and standard monitoring Results Review: All pre-operative results and documents have been reviewed as part of the pre- operative evaluation. Informed Consent: The patient's anesthetic plan and its attendant risks and benefits were discussed with the patient/family/POA. Questions were solicited and answers provided to the satisfaction of the patient/family/POA.
[2022-09-09 09:17] VITALS: BP 109/69; PULSE 63; RESP 18; TEMP 36.2; O2SAT 100
--- NOTE | 2022-09-09 09:23 | PM.HPGS ---
History of Present Illness History of Present Illness Consent: Risks, benefits, and alternatives have been discussed and questions answered. Patient agrees to proceed with procedure. Chief complaint: gerd Narrative: Stormy Mckenzie is a 37 year old female with gerd for 2 months now on protonix and famotidine with some relief but never had egd Review of Systems Constitutional: Constitutional: Denies headache(s) and Denies weakness Eyes: Eyes: Denies blurry vision ENT: Reports Normal hearing present, Denies headache(s) and Denies neck pain Cardiovascular: Cardiovascular: Denies chest pain and Denies dyspnea Respiratory: Respiratory: Denies dyspnea Gastrointestinal: Gastrointestinal: Reports no additional gastrointestinal complaints Genitourinary: Genitourinary: Denies dysuria Musculoskeletal: Musculoskeletal: Denies neck pain Integumentary/Breasts: Skin/Breast: Denies dry skin Neurologic: Reports Normal hearing present, Denies headache(s) and Denies weakness Psychiatric: Psychiatric: Denies anxiety Endocrine: Endocrine: Denies change in body appearance Hematologic/Lymphatic: Hematologic/Lymphatic: Denies easy bleeding Allergic/Immunologic: Allergic/Immunologic: Denies urticaria PMF Past Medical History Medical History (Updated 09/09/22 @ 09:24 by Kiran Salgado MD) Anxiety Factor V Leiden GERD (gastroesophageal reflux disease) PFO (patent foramen ovale) TIA (transient ischemic attack) Surgical History Surgical History No history of previous surgery Family History Family History Father Arthritis Mother Arthritis Depression Fibromyalgia Social History Social History Smoking status: Never smoker Second hand tobacco smoke exposure: No Alcohol intake: never Substance use: former Substance use type: marijuana Last use: 10/17/21 Living arrangements: with family Gender identity (if verbalized by the patient): Female Spiritual care concerns: No Meds Home Medications and Allergies Home Medications Medication Instructions Recorded Confirmed Type aspirin 81 mg tablet,delayed 81 mg PO QAM #30 tabs 10/23/21 09/05/22 Rx release atorvastatin 20 mg tablet 20 mg PO DAILY #30 tabs 10/23/21 09/05/22 Rx acidophilus 100 million 1 cap PO DAILY 09/05/22 09/05/22 History cell-pectin, citrus 10 mg capsule famotidine 20 mg tablet 20 mg PO DAILY 09/05/22 09/05/22 History [id number]-epa-fish 1 tablet PO DAILY 09/05/22 09/05/22 History oil 200 mcg-1,000 unit-25 mg tab,chew multivitamin 1 tablet PO DAILY 09/05/22 09/05/22 History pantoprazole 40 mg tablet,delayed 40 mg PO QAM 09/05/22 09/05/22 History release Allergies Allergy/AdvReac Type Severity Reaction Status Date / Time No Known Allergies Allergy Verified 09/09/22 09:11 Vital Signs Vital Signs - 24 hr 09/09/22 09:17 Temperature 97.1 F L Pulse Rate 63 Respiratory Rate 18 Blood Pressure 109/69 Pulse Oximetry 100 Oxygen Delivery Room Air Exam Const: General: comfortable and no acute distress HENMT: Face/Nose/Sinus: Normal nares present Eyes: General: appearance normal, both eyes and all related structures Neck: Neck: no JVD Resp: Auscultation: clear to auscultation bilaterally Cardio: Rate: regular rate Rhythm: regular rhythm GI: Inspection: non-distended GI Palp: Yes Soft to palpation Skin: General skin exam: normal color Neuro: General: gait normal Speech: normal speech Extrem: General: normal to inspection Psych: Mental Status: mental status grossly normal Assessment and Plan Assessment and plan (1) GERD (gastroesophageal reflux disease): Code(s): K21.9 - Gastro-esophageal reflux disease without esophagitis Status: Acute Assessment and Plan: egd with bx already on
[2022-09-09] MEDS: LACTATED RINGERS 1,000 ML 150 ML IV CONT (09:28)
[2022-09-09] MEDS: BENZOCAINE (*SP) 60 ML SPRAY CAN (HURRICAINE) 1 SPRAY MUCOUS MEM (09:32)
[2022-09-09 09:41] VITALS: BP 88/49; PULSE 69; RESP 21; O2SAT 99
[2022-09-09 09:51] VITALS: BP 90/57; PULSE 55; RESP 16; O2SAT 100
[2022-09-09 10:01] VITALS: BP 92/67; PULSE 67; RESP 24; O2SAT 100
== END 2022-09-09 10:32 | disposition home or self-care (01) ==
PROVIDERS: PCP Family Medicine; Visit Provider Internal Medicine Gastroenterology
PROC: 0DJ08ZZ Inspection of Upper Intestinal Tract, Via Natural or Artificial Opening Endoscopic (ICD-10-PCS; CPT 43235; principal; 2022-09-09 10:30)
DX: K21.9 Gastro-esophageal reflux disease without esophagitis (principal); K29.70 Gastritis, unspecified, without bleeding; Q21.12 Patent foramen ovale; D68.51 Activated protein C resistance; Z86.73 Personal history of transient ischemic attack (TIA), and cerebral infarction without residual deficits; Z79.82 Long term (current) use of aspirin
CPT/HCPCS: 43239; 88305; J2704; J7120

== ENCOUNTER 2022-12-21 11:01 | Outpatient (CLI) | payer OTHER, SELFPAY ==
--- NOTE | ~2022-12-21 | US_ITS ---
US renal BI 12/21/2022 11:31 Procedure: Realtime transabdominal ultrasound of the kidneys and bladder. Indication: Incomplete emptying of the bladder Comparison: No prior studies for comparison. Findings: Renal echotexture is normal bilaterally without hydronephrosis, contour deforming mass or r enal calculus. The right kidney measures 12.8 cm and left kidney measures 13.2 cm. Bladder within no rmal limits. Impression: 1: Unremarkable renal ultrasound. No stones, masses or hydronephrosis. Reviewed, dictated and finalized at location B. MILL OPERATOR Impression: 1: Unremarkable renal ultrasound. No stones, masses or hydronephrosis.
== END 2022-12-21 11:02 | disposition home or self-care (01) ==
LOC: ANHIMG 11:05
PROVIDERS: PCP Family Medicine; Visit Provider Nurse Practitioner
DX: R39.14 Feeling of incomplete bladder emptying (principal)
CPT/HCPCS: 76775

== ENCOUNTER 2023-04-05 07:00 | Emergency (ER) | payer OTHER, SELFPAY ==
--- NOTE | ~2023-04-05 | XR_ITS ---
EXAMINATION: XR ankle LT min 3V DATE: 04/05/2023 INDICATION: Left ankle pain TECHNIQUE: Anteroposterior, lateral, mortise, and additional oblique view of the ankle were obtained. COMPARISON: None. FINDINGS: There is marked lateral soft tissue swelling of ankle near the lateral malleolus. Bone alig nment is normal. There is no fracture. IMPRESSION: 1. Lateral ankle soft tissue swelling without acute osseous abnormality. Reviewed, dictated and finalized at location A.
== END 2023-04-05 09:35 | disposition home or self-care (01) ==
LOC: ANHED 18:51
PROVIDERS: Emergency Provider Emergency Medicine; PCP Family Medicine
DX: S93.402A Sprain of unspecified ligament of left ankle, initial encounter (principal); W10.9XXA Fall (on) (from) unspecified stairs and steps, initial encounter
CPT/HCPCS: 73610; 99283

== ENCOUNTER 2024-10-07 09:13 | Emergency (ER) | payer OTHER, SELFPAY ==
--- NOTE | 2024-10-07 09:22 | ED_ITS ---
HPI - URI/Sore Throat General Chief Complaint: Upper Respiratory Infection Stated Complaint: Sinus/Cough Time Seen by Provider: 10/07/24 09:25 Source: patient Mode of arrival: ambulatory Limitations: no limitations History of Present Illness HPI Narrative: Patient is a 39-year-old female who presents with 10 days of sinus congestion, sinus pressure and cough. Daughter has recently had strep and pneumonia. Denie s any fever, chills, nausea, vomiting, diarrhea. [id number] medication has not been working. Related Data Home Medications ?Medication ?Instructions ?Recorded ?Confirmed ?Last Taken ?Type [id number] 1 tablet PO DAILY 09/05/22 10/07/24 Unknown History oil 200 mcg-1,000 unit-25 mg tab,chew multivitamin 1 tablet PO DAILY 09/05/22 10/07/24 Unknown History Allergies Allergy/AdvReac Type Severity Reaction Status Date / Time No Known Allergies Allergy Verified 10/07/24 10:03 Review of Systems Review of Systems: All systems reviewed & are unremarkable except as noted in HPI and below Constitutional: Constitutional: Denies body ache(s), Denies chills, Denies fatigue, Denies fever(s), Denies headache(s), Denies malaise and Denies weakness Eyes: Eyes: Denies blurry vision, Denies itchy eyes and Denies loss of vision ENT: Denies otalgia, Denies headache(s), Reports nasal congestion, Denies sinus pain, Reports sinus pressure and Denies sore throat Cardiovascular: Cardiovascular: Denies chest pain, Denies irregular heart rhythm and Denies dyspnea Respiratory: Respiratory: Reports cough and Denies dyspnea Gastrointestinal: Gastrointestinal: Denies abdominal pain, Denies diarrhea, Denies nausea and Denies vomiting Musculoskeletal: Musculoskeletal: Denies back pain, Denies myalgias and Denies arthralgias Integumentary/Breasts: Skin/Breast: Denies pruritus and Denies rash Neurologic: Denies headache(s), Denies loss of vision and Denies weakness Psychiatric: Psychiatric: Reports no additional psychiatric complaints Endocrine: Endocrine: Denies fatigue Allergic/Immunologic: Allergic/Immunologic: Denies itchy eyes PMFSH Past Medical History Medical History Bilateral lower abdominal cramping Anxiety Factor V Leiden GERD (gastroesophageal reflux disease) PFO (patent foramen ovale) TIA (transient ischemic attack) Surgical History Surgical History No history of previous surgery Family History Family History Father Arthritis Mother Arthritis Depression Fibromyalgia Social History Social History Smoking status: Never smoker Second hand tobacco smoke exposure: No Alcohol intake: never Substance use: former Substance use type: marijuana Last use: 10/17/21 Living arrangements: with family Gender identity (if verbalized by the patient): Female Spiritual care concerns: No Comments At time of signature, agree with nursing past medical, surgical, social and family history. There is no relevant family history pertinent to the presenting complaint. Exam Const: General: cooperative, healthy appearing, comfortable, no acute distress and well nourished Nutritional Appearance: well nourished Orientation/consciousness: patient oriented x3 Limitations: no limitations HENMT: Head: normal to inspection, normocephalic and atraumatic Ears: hearing grossly normal bilaterally, external ears normal, TM's normal bilaterally, EAC's normal and no periauricular adenopathy Face/Nose/Sinus: Normal external nose present, Abnormal mucous membranes and turbinates present erythematous bilateral and diffuse, normal facial exam, face symmetric and Facial tenderness on exam of face and sinuses Face and sinus: normal facial exam and face symmetric Mouth: Yes Normal oral and palatal mucosa present, Yes lip normal, Yes tongue normal, Yes Normal salivary glands and ducts present, Yes oropharynx normal and Yes moist mucous membranes Teeth and gingiva: dentition normal Throat: posterior oropharynx normal, tonsils normal and uvula midline Eyes: General: appearance normal, both eyes and all related structures Alignment and Position: alignment normal and position normal Periorbital: periorbital findings normal Eyelids: eyelids normal Pupils: Equal, round and reactive pupils present Neck: Neck: normal visual inspection, full ROM, no lymphadenopathy and supple Chest: Chest palpation & inspection: normal inspection of the chest and normal palpation of entire chest wall Resp: Effort & Inspection: normal respiratory effort and able to speak in complete sentences Auscultation: clear to auscultation bilaterally, no crackles, no rales, no rhonchi and no wheezes Cardio: Rate: regular rate Rhythm: regular rhythm Heart sounds: S1 normal heart sound present and S2 normal heart sound present GI: Inspection: normal to inspection Skin: General skin exam: normal color and no rashes or lesions noted Neuro: General: patient oriented x3 and moves all extremities Cranial nerves: Yes Equal, round and reactive pupils present Speech: normal speech Gait exam (Neuro): Normal gait present Extrem: General: normal to inspection, full ROM and no edema Psych: Appearance: grossly normal and well kempt Mental Status: mental status grossly normal Speech and movement: Normal speech and movement present Affect: normal affect Attitude: cooperative Thought process: Normal thought process present Course Course Emergency Course: Patient is aware of diagnosis, understands and agrees to treatment plan. Anticipatory guidance given. Patient agrees to follow-up as directed and is aware of reasons to seek care at the emergency department. Portions of this record may have been created with voice recognition software Level of Care: Express Care Visit Vital Signs Vital signs: Vital Signs Temperature 36.2 C L 10/07/24 09:56 Pulse Rate 81 10/07/24 09:56 Respiratory Rate 17 10/07/24 09:56 Blood Pressure 122/77 10/07/24 09:56 Pulse Oximetry 100 10/07/24 09:56 Oxygen Delivery Room Air 10/07/24 09:56 Temperature 36.2 C L 10/07/24 09:56 Pulse Rate 81 10/07/24 09:56 Respiratory Rate 17 10/07/24 09:56 Blood Pressure 122/77 10/07/24 09:56 Pulse Oximetry 100 10/07/24 09:56 Oxygen Delivery Room Air 10/07/24 09:56 Reviewed MDM - URI/Sore Throat MDM Narrative Medical decision making narrative: Discharge instructions reviewed with patient, as well as provided in writing per nursing staff. The instructions also include specific and strict return/GO TO THE ER as well as f/u information. All questions have been answered, and the patient deny any further questions with discharge and discharge plan. Differential diagnosis considered: Rios virus, strep pharyngitis, allergic rhinitis, upper respiratory tract infection, sinusitis, rhinosinusitis, nasopharyngitis. viral pharyngitis, otitis media, otitis externa, otitis effusion, foreign body, cerumen impaction, viral syndrome, and influenza.? Exam findings show no acute concerns or changes; patient is non-toxic appearing and is in no distress.? Patient is appropriate for outpatient treatment and follow- up.? Medical Records Attestation: I reviewed the patient's medical records. Lab Data Attestation: I reviewed the patient's lab results. Discharge Plan Discharge Clinical Impression: Sinusitis Qualifiers: Sinusitis location: maxillary Chronicity: acute Recurrence: non-recurrent Qualified Code(s): J01.00 - Acute maxillary sinusitis, unspecified Patient Disposition: Home, Self-Care Condition: Stable Instructions: Sinusitis (ED) Additional Instructions: Take antibiotics as prescribed. Take steroids in the morning with food Symptomatic treatment of a sinus infection aims to relieve symptoms. These treatments do not shorten the duration of illness. Nonprescription pain medications, such as acetaminophen (eg, Tylenol) or ibuprofen (eg, Motrin, Advil), are recommended for pain. Flushing the nose and sinuses with a saline solution several times per day has been proven to decrease pain associated with congestion and shorten the duration of symptoms. Nasal steroids (such as Flonase, 2 sprays in each nostril daily) can help to reduce swelling inside the nose, usually within two to three days. These drugs have few side effects and relieve symptoms in most people. Oral decongestants (pseudoephedrine and phenylephrine) may be helpful if you have associated symptoms of ear pain or fullness. Nasal decongestant sprays, including oxymetazoline (Afrin) and phenylephrine (Francisco-Synephrine), can be used to temporarily treat congestion. However, these sprays should not be used for more than two to three days due to the risk of rebound congestion (when the nose becomes congested constantly unless the medication is used repeatedly), possible addiction, and long-term consequences of frequent use, including persistent nasal dryness and crusting, which is very difficult to treat once it has developed. Medications to thin secretions (such as guaifenesin) may help to clear mucus. Please follow-up with your primary care doctor in the next 1-2 days. If you cannot follow-up with your primary care doctor please go to the ED for any urgent issues. If you have any worsening of symptoms or any other concerns please go to the ED immediately. Patient Language: Citizen Of [place] Prescriptions: New prednisone 20 mg tablet 40 mg PO DAILY 5 Days Qty: 10 0RF fluticasone propionate [Flonase Allergy Relief] 50 mcg/actuation spray,suspension 1 spray intranasal DAILY Qty: 16 0RF Rx Instructions: administer into each nostril amoxicillin-pot clavulanate 875-125 mg tablet 1 tablet PO Q12H 10 Days Qty: 20 0RF No Action multivitamin [Daily Multivitamin] Tablet 1 tablet PO DAILY Adult Multi plus [place]-3 200 mcg-1,000 unit-25 mg Tablet,Chewable 1 tablet PO DAILY Follow-up/Referrals: Aguila Dawson MD [Primary Care Provider] - 3 Days Time of Disposition: 10:13
[2024-10-07 09:56] VITALS: BP 122/77; PULSE 81; RESP 17; TEMP 36.2; O2SAT 100
== END 2024-10-07 10:25 | disposition home or self-care (01) ==
PROVIDERS: Emergency Provider Nurse Practitioner Family; PCP Family Medicine
DX: J01.00 Acute maxillary sinusitis, unspecified (principal); D68.51 Activated protein C resistance; K21.9 Gastro-esophageal reflux disease without esophagitis; Z86.73 Personal history of transient ischemic attack (TIA), and cerebral infarction without residual deficits
CPT/HCPCS: 99213; G0463

== ENCOUNTER 2024-11-29 14:39 | Emergency (ER) | payer OTHER, SELFPAY ==
[2024-11-29 14:50] VITALS: BP 121/84; PULSE 101; RESP 16; TEMP 37.4; O2SAT 99
--- NOTE | 2024-11-29 16:37 | ED.URI ---
HPI - URI/Sore Throat General Chief Complaint: Upper Respiratory Infection Stated Complaint: sore throat Time Seen by Provider: 11/29/24 16:37 Source: patient, RN notes reviewed and old records reviewed Mode of arrival: ambulatory Limitations: no limitations History of Present Illness HPI Narrative: Patient presents with complaints of 3 days of sore throat. She denies any fever. Reports she really gets fevers. She has been taking ibuprofen for her symptoms with moderate relief. She denies any runny nose, does have a slight cough. She does endorse some headache and mild nausea. She does not appear to be any distress. She is able to eat and drink without difficulty, no drooling or stridor noted. Related Data Home Medications ?Medication ?Instructions ?Recorded ?Confirmed ?Last Taken ?Type multivitamin 1 tablet PO DAILY 09/05/22 11/29/24 Unknown History Allergies Allergy/AdvReac Type Severity Reaction Status Date / Time No Known Allergies Allergy Verified 11/29/24 16:39 Review of Systems Review of Systems: All systems reviewed & are unremarkable except as noted in HPI and below Constitutional: Constitutional: Reports no additional constitutional complaints ENT: Reports system reviewed and no additional complaints, except as documented and Reports sore throat Cardiovascular: Cardiovascular: Reports no additional cardiovascular complaints Respiratory: Respiratory: Reports no additional respiratory complaints Gastrointestinal: Gastrointestinal: Reports no additional gastrointestinal complaints PMFSH Past Medical History Medical History Bilateral lower abdominal cramping Anxiety Factor V Leiden GERD (gastroesophageal reflux disease) PFO (patent foramen ovale) TIA (transient ischemic attack) Surgical History Surgical History No history of previous surgery Family History Family History Father Arthritis Mother Arthritis Depression Fibromyalgia Social History Social History Smoking status: Never smoker Second hand tobacco smoke exposure: No Alcohol intake: never Substance use: former Substance use type: marijuana Last use: 10/17/21 Living arrangements: with family Gender identity (if verbalized by the patient): Female Spiritual care concerns: No Comments At the time of my signature, I reviewed and agree with the nursing past medical, surgical, social, and family history. There is no relevant family history pertinent to the patient complaint. Exam Const: General: cooperative, no acute distress, alert and awake Orientation/consciousness: oriented to person, oriented to place and oriented to time HENMT: Head: normal to inspection Ears: TM's normal bilaterally Mouth: Yes moist mucous membranes Throat: posterior oropharynx abnormal erythema Resp: Effort & Inspection: normal respiratory effort and able to speak in complete sentences Auscultation: clear to auscultation bilaterally, no crackles, no rales, no rhonchi and no wheezes Cardio: Palpation: normal PMI Rate: regular rate Rhythm: regular rhythm Heart sounds: S1 normal heart sound present and S2 normal heart sound present Neuro: General: oriented to person, oriented to place and oriented to time Cranial nerves: Yes CN's II-XII intact bilaterally Psych: Appearance: grossly normal Thought process: Normal thought process present Insight: Good insight present (Psych) Judgement: Good judgement present (Psych) Course Course Level of Care: Express Care Visit Vital Signs Vital signs: Vital Signs Temperature 99.4 F 11/29/24 14:50 Pulse Rate 101 H 11/29/24 14:50 Respiratory Rate 16 11/29/24 14:50 Blood Pressure 121/84 11/29/24 14:50 Pulse Oximetry 99 11/29/24 14:50 Oxygen Delivery Room Air 11/29/24 14:50 Temperature 99.4 F 11/29/24 14:50 Pulse Rate 101 H 11/29/24 14:50 Respiratory Rate 16 11/29/24 14:50 Blood Pressure 121/84 11/29/24 14:50 Pulse Oximetry 99 11/29/24 14:50 Oxygen Delivery Room Air 11/29/24 14:50 Reviewed Discharge Plan Discharge Clinical Impression: Strep pharyngitis Patient Disposition: Home, Self-Care Condition: Stable Instructions: Antibiotic Form, Pharyngitis (ED) Additional Instructions: Take medications as prescribed. Follow-up with primary care provider. Emergency department for new or worse symptoms Patient Language: Bengali Prescriptions: No Action fluticasone propionate [Flonase Allergy Relief] 50 mcg/actuation spray,suspension 1 spray intranasal DAILY Qty: 16 0RF Rx Instructions: administer into each nostril multivitamin [Daily Multivitamin] Tablet 1 tablet PO DAILY Adult Multi plus [place]-3 200 mcg-1,000 unit-25 mg Tablet,Chewable 1 tablet PO DAILY Follow-up/Referrals: Aguila Dawson MD [Primary Care Provider] - 2 Weeks Stand Alone Forms: Work/School Release IP Time of Disposition: 16:56
[2024-11-29 16:57] LABS: EDSTREPNEGPOS1 Positive (Negative)
== END 2024-11-29 17:00 | disposition home or self-care (01) ==
PROVIDERS: Emergency Provider Nurse Practitioner Family; PCP Family Medicine
DX: J02.0 Streptococcal pharyngitis (principal); D68.51 Activated protein C resistance; K21.9 Gastro-esophageal reflux disease without esophagitis; Z86.73 Personal history of transient ischemic attack (TIA), and cerebral infarction without residual deficits
CPT/HCPCS: 87880; 99212; G0463

== ENCOUNTER 2025-08-19 00:45 | Day surgery (SDC) | payer OTHER, SELFPAY ==
[2025-08-08 10:15] VITALS: BMI 23.1
--- NOTE | 2025-08-08 10:24 | PC.NURSE ---
[facility] has started construction of its new state of the art ER which will open Spring 2026. With this, we anticipate parking may be a challenge for some our surgical patients and families. Parking spaces are limited but are available for all Surgical, obstetrics, and ER patients sharing this lot. If you arrive and find you are having a hard time finding a parking space, please note that we understand the challenges, please drive around the hospital and park near Hospital Entrance 1. When you enter this entrance, you can ask a volunteer to direct or take you back to the surgical waiting area to check in. We appreciate everyone?s understanding of these expected challenges while we build for your future. Report to the Outpatient Waiting Room, entrance under the green pavilion located off [address], at time _0630_ on date _[id number]_. Planned Procedure Time: _0830_.? Time changes happen often and if your time is changed the preop area will call you the afternoon before. - You and your visitor will be asked to self-screen and do not enter if you have any COVID symptoms. Please call surgeon if you need to reschedule. - A mask is optional within the hospital at this time. Patients may have clear liquids (water, carbonated beverages, clear teas, apple juice) until 3 hours prior to surgery with a maximum of 20 ounces. - No food from midnight until time of surgery and no smoking, or chewing tobacco (or any form of nicotine). No chewing gum, candy or mints. Take only the following medications with a SIP of water on the morning of surgery: ___None____ DO NOT STOP ANY OF YOUR OTHER PRESCRIPTION MEDICATIONS PRIOR TO SURGERY EXCEPT THE FOLLOWING Hold all vitamins and supplements for 3 days per anesthesiologist. Medications to discontinue per physician Date to take last dose Please no make-up, nail frisian, hairspray, perfume, deodorant, or body powder the day of surgery.? No jewelry (including any body piercings) or valuables the day of surgery, leave them at home.? Please take a shower or bath the night before, or the morning of, surgery with an antibacterial soap.? Wear comfortable, loose fitting clothing.? - Jewelry must be removed prior to entering the operating room.? Rings and piercings that are not removed may be cut off. - The hospital will not accept responsibility for valuables.? - Please leave all valuables, including medications, at home the day of surgery. If you are going home after surgery, a licensed explosives truck driver must drive you home.? - NO public transportation without another adult if you receive anesthesia. - We recommend that an adult stay with you for 24 hours following discharge. - We also recommend that you do not drive, make important decision, drink alcoholic beverages, or take any drugs that were not prescribed by your health care provider for at least 24 hours after your discharge time. Follow any additional instructions given to you from your surgeon. Telephone instructions given to __Diane__and asked if any additional questions and then verbalized understanding. Patient advised to call surgeon office or pre surgery nurse liaison [phone] if any additional questions.
[2025-08-19] VITALS (9 sets, daily range): BP systolic 94–117; BP diastolic 58–79; PULSE 58–79; RESP 12–16; TEMP 36.2–36.5; O2SAT 95–100; BMI 23.4
--- OUTSIDE RECORDS SUMMARY | 2025-08-19 00:48 | XMS_ITS | Data Portability ---
Author Organization [facility] [place], Main Office Address [address] [place] [address] Assessment No assessment recorded. Plan of Treatment Reminders Order Date Submit Date Provider Last Modified By Organization Details Last Modified Time Details Appointments None recorded. Lab urinalysis , dipstick [email or web address] [facility] [address] [facility], [place], [address], 3 16:52:10 urinalysis , dipstick [address] [facility], [address] [facility] [address], [address], 3 09:21:08 urinalysis , dipstick [email or web address] [facility], [address] [facility], [place], [address], 3 09:14:28 Referral None recorded. Procedures None recorded. Surgeries None recorded. Imaging None recorded. Medication Orders None recorded. Patient TargetsNo targets recorded. Patient InstructionsNo instructions recorded. Reason for Referral None Reported. Results Created Date Observation Date Name Description Value Unit Range Abnormal Flag Note LastModifiedBy Organization Detail LastModifiedTime 02/02/2002/01/2023 urina lysis , dipst ick Leukocytes (reference range: negative gibson/ l) Negati ve Not Available [facility] [address], [place], [address], 02/01/2023 15:11:38 02/02/20 23 02/01/2023 urina lysis , dipst ick Nitrite (reference rage: negative mg/dl) negati ve Not Available [facility] [address], [place], [address], 02/01/2023 15:11:38 02/02/20 23 02/01/2023 urina lysis , dipst ick Urobilinogen (reference range: 0.2-1 mg/dl) 0.2 Not Available [facility] [address], [place], [address], 02/01/2023 15:11:38 02/02/20 23 02/01/2023 urina lysis , dipst ick Protein (reference range: negative mg/dl) Negati ve Not Available [facility] [address], [place], [address], 02/01/2023 15:11:38 02/02/20 23 02/01/2023 urina lysis , dipst ick pH (reference range: 5-7) 6.5 Not Available [facility] [address], [place], [address], 02/01/2023 15:11:38 02/02/20 23 02/01/2023 urina lysis , dipst ick Blood (reference range: negative Krishna/ l) Modera te Not Available [facility] [address], [place], [address], 02/01/2023 15:11:38 02/02/20 23 02/01/2023 urina lysis , dipst ick Specific Max (reference range: 1.005-1.030) 1.010 Not Available [facility] [address], [place], [address], 02/01/2023 15:11:38 02/02/20 23 02/01/2023 urina lysis , dipst ick Ketone (reference range: negative mg/dl) Negati ve Not Available [facility] [address], [place], [address], 02/01/2023 15:11:38 02/02/20 23 02/01/2023 urina lysis , dipst ick Bilirubin (reference range: negative mg/dl) Negati ve Not Available [facility] [address], [place], [address], 02/01/2023 15:11:38 02/02/20 23 02/01/2023 urina lysis , dipst ick Glucose (reference range: negative mg/dl) Negati ve Not Available [facility] [address], [place], [address], 02/01/2023 15:11:38 02/02/20 23 02/01/2023 urina lysis , dipst ick Appearance Clear Not Available [facility] [address], [place], [address], 02/01/2023 15:11:38 02/02/20 23 02/01/2023 urina lysis , dipst ick Color Yellow Not Available [facility] [address], [place], [address], 02/01/2023 15:11:38 02/04/20 23 02/03/2023 urina lysis , dipst ick Leukocytes (reference range: negative gibson/ l) Negati ve Not Available [facility] [address], [place], [address], 02/03/2023 09:33:31 02/04/20 23 02/03/2023 urina lysis , dipst ick Nitrite (reference rage: negative mg/dl) negati ve Not Available [facility] [address], [place], [address], 02/03/2023 09:33:31 02/04/20 23 02/03/2023 urina lysis , dipst ick Urobilinogen (reference range: 0.2-1 mg/dl) 0.2 Not Available [facility] [address], [place], [address], 02/03/2023 09:33:31 02/04/20 23 02/03/2023 urina lysis , dipst ick Protein (reference range: negative mg/dl) Negati ve Not Available [facility] [address], [place], [address], 02/03/2023 09:33:31 02/04/20 23 02/03/2023 urina lysis , dipst ick pH (reference range: 5-7) 7.0 Not Available [facility] [address], [place], [address], 02/03/2023 09:33:31 02/04/20 23 02/03/2023 urina lysis , dipst ick Blood (reference range: negative Krishna/ l) Negati ve Not Available [facility] [address], [place], [address], 02/03/2023 09:33:31 02/04/20 23 02/03/2023 urina lysis , dipst ick Specific Max (reference range: 1.005-1.030) 1.010 Not Available [facility] [address], [place], [address], 02/03/2023 09:33:31 02/04/20 23 02/03/2023 urina lysis , dipst ick Ketone (reference range: negative mg/dl) Negati ve Not Available [facility] [address], [place], [address], 02/03/2023 09:33:31 02/04/20 23 02/03/2023 urina lysis , dipst ick Bilirubin (reference range: negative mg/dl) Negati ve Not Available [facility] [address], [place], [address], 02/03/2023 09:33:31 02/04/20 23 02/03/2023 urina lysis , dipst ick Glucose (reference range: negative mg/dl) 100 Not Available [facility] [address], [place], [address], 02/03/2023 09:33:31 02/04/20 23 02/03/2023 urina lysis , dipst ick Appearance Clear Not Available [facility] [address], [place], [address], 02/03/2023 09:33:31 02/04/20 23 02/03/2023 urina lysis , dipst ick Color Yellow Not Available [facility] [address], [place], [address], 02/03/2023 09:33:31 02/28/20 23 02/27/2023 urina lysis , dipst ick Leukocytes (reference range: negative gibson/ l) Negati ve Not Available [facility] [address], [place], [address], 02/27/2023 15:27:38 02/28/20 23 02/27/2023 urina lysis , dipst ick Nitrite (reference rage: negative mg/dl) negati ve Not Available [facility] [address], [place], [address], 02/27/2023 15:27:38 02/28/20 23 02/27/2023 urina lysis , dipst ick Urobilinogen (reference range: 0.2-1 mg/dl) 0.2 Not Available [facility] [address], [place], [address], 02/27/2023 15:27:38 02/28/20 23 02/27/2023 urina lysis , dipst ick Protein (reference range: negative mg/dl) Negati ve Not Available [facility] [address], [place], [address], 02/27/2023 15:27:38 02/28/20 23 02/27/2023 urina lysis , dipst ick pH (reference range: 5-7) 7.0 Not Available [facility] [address], [place], [address], 02/27/2023 15:27:38 02/28/20 23 02/27/2023 urina lysis , dipst ick Blood (reference range: negative Krishna/ l) Negati ve Not Available [facility] [address], [place], [address], 02/27/2023 15:27:38 02/28/20 23 02/27/2023 urina lysis , dipst ick Specific Max (reference range: 1.005-1.030) 1.025 Not Available [facility] [address], [place], [address], 02/27/2023 15:27:38 02/28/20 23 02/27/2023 urina lysis , dipst ick Ketone (reference range: negative mg/dl) Negati ve Not Available [facility] [address], [place], [address], 02/27/2023 15:27:38 02/28/20 23 02/27/2023 urina lysis , dipst ick Bilirubin (reference range: negative mg/dl) Negati ve Not Available [facility] [address], [place], [address], 02/27/2023 15:27:38 02/28/20 23 02/27/2023 urina lysis , dipst ick Glucose (reference range: negative mg/dl) Negati ve Not Available [facility] [address], [place], [address], 02/27/2023 15:27:38 02/28/20 23 02/27/2023 urina lysis , dipst ick Appearance Clear Not Available [facility] [address], [place], [address], 02/27/2023 15:27:38 02/28/20 23 02/27/2023 urina lysis , dipst ick Color Yellow Not Available [facility] [address], [place], [address], 02/27/2023 15:27:38 12/23/19 23 12/21/2022 US, renal No observ ation record ed. [address] [facility] [address], [place], [address], 12/26/2022 10:53:50 Result Notes None recorded. Problems Name Problem SNOMED Code Status Onset Date Resolution Date Notes Provider Name and Address Organization Details Recorded Time Increased frequency of urination 680937057 Active 023 Starr Celestin MA null, [facility] [employer] [facility] 3 15:11:44 Dysuria 11885525 Active 023 Jean Claude Vaca NP [address], [address], [place], [address], [facility] [employer] [facility] 3 09:33:35 Urinary bladder pain 93974542 Active 023 Jean Claude Vaca NP [address], [place], [address], [facility] [employer] [facility] 3 09:19:52 Problem Notes None recorded. Procedures Surgical History Date Name Laterality Status Provider Name and Address Organization Details Recorded Time 3 Cystoscopy (female) completed Ken Castellon MD [address], [place], [address], [facility] [employer] [facility] 02/27/2023 16:50:07 3 Urodynamic Studies completed Starr Celestin MA [facility] [employer] [facility] 02/01/2023 15:16:49 Imaging Results None recorded. Procedure Notes None recorded. Medical Equipment None Reported. Allergies No known drug allergies Medications Name Sig Start Date Stop Date Status Note LastModified by Organization Details LastModified Time amoxicillin 500 mg capsule TAKE 1 CAPSULE BY MOUTH EVERY 12 HOURS FOR 5 DAYS 12/19 completed Not Available Not Available Not Available atorvastati n 10 mg tablet TAKE 1 TABLET BY MOUTH EVERY DAY active Not Available Not Available No t Available nystatin 100,000 unit/gram topical ointment APPLY TO AFFECTED AREA TWICE A DAY WIPE OFF PRIOR TO BREASTFEE DING 12/19 completed Not Available Not Available Not Available clopidogrel 75 mg tablet TAKE 1 TABLET BY MOUTH EVERY DAY active Not Available Not Available No t Available sulfamethox azole 800 mg-trimetho prim 160 mg tablet TAKE 1 TABLET BY MOUTH EVERY 12 HOURS FOR 5 DAYS 12/19 completed Not Available Not Available Not Available aspirin 81 mg tablet,sampson yed release TAKE 1 TABLET BY MOUTH EVERY DAY active Not Available Not Available No t Available famotidine 20 mg tablet TAKE 1 TABLET BY MOUTH EVERY DAY IN THE EVENING active Not Available Not Available No t Available dicyclomine 20 mg tablet TAKE 1 TABLET BY MOUTH 3 TIMES A DAY 12/19 completed Not Available Not Available Not Available phenazopyri dine 100 mg tablet TAKE 1 TABLET BY MOUTH THREE TIMES A DAY FOR 7 DAYS 12/19 completed Not Available Not Available Not Available pantoprazol e 40 mg tablet,sampson yed release TAKE 1 TABLET BY MOUTH EVERY DAY IN THE MORNING 12/19 completed Not Available Not Available Not Available triamcinolo ne acetonide 0.1 % topical ointment APPLY THIN COAT TO AFFECTED AREA TWICE A DAY 12/19 completed Not Available Not Available Not Available gabapentin 100 mg capsule TAKE 1 CAPSULE AT BEDTIME, AFTER 3 DAYS, TAKE TWICE A DAY, THEN AFTER A WEEK TAKE 3 TIMES PER DAY 12/19 completed Not Available Not Available Not Available Jackson 3 Fish Oil capsule Take by oral route. 2022 active Not Available Not Available Not Avai lable nitrofurant oin monohydrate /macrocryst als 100 mg capsule TAKE 1 CAPSULE BY MOUTH TWICE A DAY FOR 7 DAYS 12/19 completed Not Available Not Available Not Available One-A-Day Womens Formula 2022 active Not Available Not Available Not Avai lable turmeric 2022 active Not Available Not Available Not Avai lable Vitals Date Recorded Body mass index (BMI) Body height Oxygen saturation Oxygen saturation in Arterial blood by Pulse oximetry Heart rate Body temperature Body weight Systolic And Diastolic Provider Name and Address Organization Details Last Updated DateTime 3 23.1 kg/m2 167.64 cm 99 % 99 % 75 /min 97.9 [degF] 77341.7 1 g 127/81 mm[Hg] Not Available [employer] 3 01:47:47 Date Recorded Body height Provider Name an d Address Organization Details Last Updated DateTime 02/01/2023 167.64 cm JENNIFER Barragan - LELAS [facility] [employer] [facility] 02/01/2023 15:11:22 Date Recorded Body height Oxygen saturation Oxygen saturation in Arterial blood by Pulse oximetry Heart rate Body temperature Body mass index (BMI) Body weight Provider Name and Address Organization Details Last Updated DateTime 3 167.64 cm 99 % 99 % 77 /min 97.3 [degF] 23.1 kg/m2 34948.7 1 g KISHAN Abdi [facility] [employer] [facility] 3 12:53:26 Date Recorded Body height Heart rate Body temperature Body mass index (BMI) Body weight Oxygen saturation Oxygen saturation in Arterial blood by Pulse oximetry Systolic And Diastolic Provider Name and Address Organization Details Last Updated DateTime 3 167.64 cm 60 /min 97.9 [degF] 24.9 kg/m2 91731.2 2 g 99 % 99 % 119/78 mm[Hg] Starr Celestin MA [facility] [employer] [facility] 3 15:26:15 Social History Question Answer Notes LastModified by [employer] Details LastModified Time Tobacco Smoking Status Never Smoker Starr Celestin MA null, [facility] [employer] [facility] 02/01/2023 14:13:52 If You Are , What Was Your Level Of Alcohol Consumption Prior To ? None Information not available 02/01/2023 What Is Your Level Of Caffeine Consumption? None [id number] Information not available 12/22/2022 What Was The Date Of Your Most Recent Tobacco Screening? 02/03/2023 [email or web address] Information not available 02/03/2023 Has Tobacco Cessation Counseling Been Provided? No Information not available 02/01/2023 Sex: Unknown Functional Status Question Answer Note LastModified by [employer] Details LastModified Time Do you use any illicit or recreational drugs? No Information not available 02/01/2023 Do you or have you ever used any other forms of tobacco or nicotine? No Information not available 02/01/2023 What is your level of alcohol consumption? None [id number] Information not available 12/22/2022 Mental Status None recorded. Family History Relationship Description Onset Age of this Age Resolved Age Notes LastModified by Organization Details LastModified Time Mother Diabetes mellitus [id number] Not available 12/22/2022 01:47:31 Medical History No medical history recorded. Gynecological HistoryNo gynecological history recorded. Obstetrics History GPAL:G 0 P 0 0 0 0 Past Encounters Encounter ID Performer Location Encounter Start Date Encounter Closed Date Diagnosis/Indication Diagnosis SNOMED-CT Code Diagnosis ICD10 Code Diagnosis IMO Codes Diagnosis Note [id number] Jean Claude THANG Vaca [facility] [address] [address] 12/19/2022 00:00:00 12/19/2022 15:42:15 [id number] Jean Claude VacaTHANG [facility] [address] [address] 02/01/2023 14:11:46 02/01/2023 15:17:03 Increased frequency of urination 100882683 R35.0 [id number] Jean Claude SalomonTHANG garcia [facility] [address] [address] 02/03/2023 12:25:42 02/03/2023 13:13:32 Urinary bladder pain 09207284 R39.82 Still having bladder pain despite limiting bladder irritants. Will refer to MD for cystoscopy for further evaluation . Dysuria 00658300 R30.0 UA negative for infection. Increased frequency of urination 164198584 R35.0 Continue to limit bladder irritants. Offered trial of anticholin ergic/beta 3 agonist. Would like to complete cysto prior to trialing medication s. [id number] Ken Castellon MD [facility] [address] [address] 02/27/2023 14:56:59 02/27/2023 16:50:49 Dysuria 91706996 R30.0 Negative ua, cysto and urodynamic s, probably just irritation , no signs of IC, suggested same diet and trial of pelvic floor exercises. Health Concerns Section Related Observation LastModified by Organization Detai ls LastModified Time None Recorded Concern Status LastModified by Organization Details LastModified Time None Recorded Advance Directives Directive None Recorded Payers Insurance Date Sequence Insurance Name Policy Number Policy Espinal Covered Member ID Espinal Member ID Guarantor Name 04/11/2023 1 [facility] - DOS ON OR AFTER 21 (MEDICAID REPLACEMENT - HMO) Stormy Mckenzie [id number] Stormy Mckenzie Notes Date Note Type Note Provider Name and Address Organization Details Recorded Time 02/03/2023 text/html ROS as noted in the HPI 12/19/22Patient presents to the office today 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 Patient reports this 1st started around February or March of last year where she was diagnosed with the urinary tract infection and was given a round of antibiotics. Symptoms lingered on and was treated with amoxicillin and then symptoms started to subside. She states at the beginning of November this year she was diagnosed with another UTI and was given a round of antibiotics. Symptoms did not improve and urine culture was negative. She reports that the urethral burning is intermittent and can be present whether she is urinating or not. She has eliminated bladder irritants with no improvement in symptoms. She reports that she drinks about 120 oz of water daily. She denies any urinary incontinence and only wakes up one time per night usually. recently this year she was diagnosed with factor 5 Leiden and suffered a TIA. During the workup they found out that she had PFO which was also repaired.:-ZACKTIO N: 11/2022-MOST BOTHERSOME SYMPTOM: urethral burning/frequency- URINARY INCONTINENCE: Denies-CURRENT OAB MEDS: Denies-PREVIOUSLY TRIALED MEDS: Denies-DIABETES: Denies-NEUROLOGIC ISSUES: TIA--10/21/2021, small fiber neuropathy-GI ISSUES: IBS-PRIOR /DISABILITY COORDINATOR OPERATIONS: Denies-BLOOD THINNERS: ClopidogrelUA- negative for blood or infectionPVR- 239cc 02/03/2023atient presents to the office today to follow-up after UDS. UDS showed normal compliance and bladder capacity of 580cc. Qmax 18 ml/sec. PVR low. HENRI was normal. She is voiding every 1 hour during the day. Still has c/o intermittent pain in her bladder. UA today is normal. Jean Claude Vaca NP [address], [place], [address], [facility] [place] 03/27/2023 09:21:12 02/27/2023 text/html Bladder PainReported by PatientPt here for further evaluation intermittent bladder discomfort, sometimes worse prior to period, worse with spicy or acidic foods. No caffeine. Urodynamics showed normal bladder, low residual. Ken Castellon MD [address], [place], [address], [place] [facility] 02/27/2023 16:52:13 OBGyn Episode No OBEpisode recorded.
--- OUTSIDE RECORDS SUMMARY | 2025-08-19 00:48 | XMS_ITS | Clinical Summary ---
Author Organization [facility] Address [address] [place] [address] Care Team Providers Care Airport Skilled Maintenance Supervisor Name Role Phone Aguila Dawson MD Primary Care Provider + [phone] Source Comments [facility],non-owned Affiliates and Associated Physician Practices is amultiple site organization consisting of ambulatory clinics and hospital sitesin [place], [place], [place] and [place]. This disclosure is being madepursuant to the Care Everywhere program and may not contain all information available regarding this patient. Last updated 18.[facility] Allergies No known active allergies Medications * Be aware that medications may not be up to date on this document. Alwaysverify current medications with the patient. acetaminophen (TYLENOL) 325 MG tablet Take 1 (one) tablet by mouth every 4 hours as needed for Fever or Pain Maximum allowable Acetaminophen amount = 4 Grams (4000 mg) / 24 hours. Active Multiple Vitamins-Fruit Thinner Machine Operator als (ONE-A-DAY ENERGY PO) Active Turmeric 500 MG Active omega 3 (FISH OIL) 1200 MG capsule Take 1 (one) capsule by mouth as needed Active ibuprofen (ADVIL) 200 MG capsule Take 400 mg by mouth 4 times daily as needed for Pain Active COLLAGEN PO Take by mouth once daily Active pantoprazole EC (Protonix) 40 MG tablet Take 1 (one) tablet by mouth every morning Active famotidine (Pepcid) 20 MG tablet Take 1 (one) tablet by mouth at bedtime Active atorvastatin (Lipitor) 10 MG tabletIndicati ons:History of CVA (cerebrovascul ar accident) Take 1 (one) tablet by mouth once daily 30 tablet 2 Active Additional Information Patient not taking.Reported on 01/12/2024 aspirin EC (Ecotrin) 81 MG tablet Take 1 (one) tablet by mouth once daily 100 tablet 3 3 Active Additional Information Patient not taking.Reported on 01/12/2024 [place]-3 Fatty Acids (Super [place] 3 EPA/DHA) 1000 MG omega 3 1,000 mg-dha 250 mg-epa 750 mg/5 mL oral liquid Take by oral route. Active Multiple Vitamins-Calci um (ONE-A-DAY WOMENS FORMULA PO) One-A-Day Womens Formula 3 Active Turmeric ([employer] Turmeric Curcumin) 500 MG turmeric 3 Active biotin 2.5 MG tablets Take 1 (one) tablet by mouth once daily Active Active Problems Problem Noted Date Diagnosed Date Dysuria 02/03/2023 01/12/2024 Increased frequency of urination 02/01/2023 01/12/2024 TIA (transient ischemic attack) 07/13/2022 PFO (patent foramen ovale) 07/13/2022 Factor V Leiden mutation 07/13/2022 Acetonuria 01/06/2022 Encounter for supervision of other normal , first trimester 01/06/2022 Infection of nipple associated with Secondary amenorrhea 01/06/2022 Urinary tract infection, site not specified 12/21 Uterine size-date discrepancy, first trimester 0 01/06/2022 Vaginitis and vulvovaginitis 01/06/2022 17 weeks gestation of 10/20/2017 Other hemorrhage in early 10/20/2017 9 weeks gestation of 08/22/2017 Screening for malignant neoplasm of cervix 02/26 Resolved Problems Problem Noted Date Diagnosed Date Resolved Date Depression screening - Initi al Screening .12/28/2017 03/24/2018 Overview (02/26/2018): 12/28/2017 Stormy Mckenzie was screened for depression using the [facility] Depression Scale (EPDS) at her [facility] initial evaluation on 12/28/2017. Her initial score at baseline was 5. Based off of her score of 5, Stormy does not warrant follow up. Patient will continue to be screened throughout , at intervals no closer than two weeks, for continued surveillance and early identification of depression until delivery. Patient reports history of self-diagnosed depression lasting approximately 1 month after he first child was born. 02/26/2018 Follow up EPDS score- 4 abnormality in pregnan cy - Unilateral Multicystic Kidney 11/28/2017 03/24/2018 Overview (02/27/2018): Images from the original note were not included. [facility] PATIENT--PLEASE CALL [phone] (ex 2) IF TRIAGED OR ADMITTED Care Provider: Dr. Shawna Brody [facility] consultants involved: RN-Sabino/Do; MFM-Kirill; Nephrology-Amie; Urology-Lizbeth Diagnosis: Unilateral (Right) Multicystic Kidney follow up: per Nephrology consult 3.8: After delivery I recommend a Serum Creatinine and Renal ultrasound at about 48 hours of life. If no hydronephrosis, then no UTI prophylaxis necessary. Check the babies Blood Pressure in the nursery. Follow-up in the renal clinic with a repeat Renal ultrasound at about 1 month of age. Per Urology consult 5.7: Ok to deliver at hospital of parents' choosing a. Strict I/O s during hospital stay b. Monitor blood pressure during hospital stay c. 48 hours of life obtain lytes and creatinine d. Start prophylactic Amoxicillin 20 mg/kg PO daily - if hydronephrosis is noted e. [facility]- Schedule renal ultrasound at 48 hours of life- Please use Dr. Rob Zhong as the ordering physician f. Other facility- Parent to schedule a renal ultrasound, [facility] & follow up appointment within two weeks by calling Norma Krause, clinical nurse, at [phone] Garageman: Dr. Franchesca Mckeon Planned surveillance: Routine care; Released from [facility] on 02.26.2018 Delivery location, mode, and [place]: [facility], , Full Term Solar Power Installer Concerns: 12/28/17- Patient experienced PPD after her first early childhood education coordinator plan based on evaluation and is subject to change based on assessment. See Images or Cardiac under Chart Review for US/ ECHO/ MRI reports. Overweight 07/10/2015 09/12/2022 Family History Relation Name Status Comments Father Alive Mother Alive Social History Tobacco Use Types Packs/Day Years Used Date Smoking Tobacco: Never Smokeless Tobacco: Never Tobacco Cessation:Counseling Given: Not Answered Alcohol Use Standard Drinks/Week Comments No 0 (1 standard drink = 0.6 oz pur e alcohol) AUDIT-C Answer Date Recorded Q1: How often do you have a drink containing alcohol? Never 11/03/2022 Q2: How many drinks containi ng alcohol do you have on a typical day when you are drinking? Patient does not drink Q3: How often do you have si x or more drinks on one occasion? Never 11/03/2022 Comments No Sex and Gender Information Value Date Recorded Sex Assigned at Not on file Legal Sex Female 3:45 PM CROSSING SUPERVISOR Gender Identity Not on file Sexual Orientation Not on file Last Filed Vital Signs Vital Sign Reading Time Taken Comments Blood Pressure 120/82 12/03/2024 3:11 PM CROSSING SUPERVISOR Pulse 68 12/03/2024 3:11 PM CROSSING SUPERVISOR Temperature 36.4 C (97.5 F) 01/12/2024 11:12 AM CDT Respiratory Rate 20 11/04/2022 11:29 AM CROSSING SUPERVISOR Oxygen Saturation 100% 04/19/2023 2:17 PM CDT Inhaled Oxygen Concentration - - Weight 69.9 kg (154 lb) 12/03/2024 3:11 PM CROSSING SUPERVISOR Height 167.6 cm (5' 6) 12/03/2024 3:11 PM CROSSING SUPERVISOR Body Mass Index 24.86 12/03/2024 3:11 PM CROSSING SUPERVISOR Plan of Treatment Upcoming Encounters Date Type Department Care Team (Late st Contact Info) Description 12/09/2025 2:30 PM CROSSING SUPERVISOR Office Visit [facility] - Neurology [address] [place] [address], [place] [address] John Ivey MD [address] [place] [address] [place] [address] Health Maintenance Due Date Last Done Comments HIV SCREENING 2000 HEPATITIS C SCREENING 09/01/2003 DTAP/TDAP/TD VACCINES (1 - Tdap) 2004 HEPATITIS B VACCINE (1 of 3 - 19+ 3-dose series) 2004 PNEUMOCOCCAL VACCINE (1 of 2 - PCV) 2004 HPV VACCINE (1 - 3-dose SCDM series) 2012 DEPRESSION SCREENING 10/23/2024 PAP SMEAR 12/28/2024 12/28/2021, 12/28/2021 COVID-19 VACCINE (3 - 2024- season) 2025 10/01/2021, 12/29/2020 INFLUENZA VACCINE (#1) 2025 , 09/28/2022, 09/11/2021, Additional history exists ZOSTER VACCINE (1 of 2) 2035 HIB VACCINE Aged Out No longer eligi ble based on patient's age to complete this topic MENINGOCOCCAL (Group B) VACCINE SHARED DECISION-MAKING Aged Out No longer eligible based on patient's age to complete this topic MENINGOCOCCAL GROUPS A/C/Y/W VACCINE Aged Out No longer eligible based on patient's age to complete this topic Medical Devices Implanted Type Area Instructor Of Nursing Device Identifier Shelf Expiration Date Model / Serial / Lot Oclr Cv Rt Atr Disc 25mm Lt Atr Disc 18 - S0 Implanted:Qty: 1 on 11/03/2022 by Joel Perez MD at [facility] Occluder Left: [employer] 06/22/2025 [id number] Insurance [facility] Advance Directives * Full Code (Latest Code Status on File) Date Activated Date Inactivated Comments 11/03/2022 2:32 PM 11/04/2022 5:14 PM Care Teams Airport Skilled Maintenance Supervisor Relationship Specialty Start Date End Date Aguila Dawson MD [address] [place] [address] PCP - General 01/11/22
--- OUTSIDE RECORDS SUMMARY | 2025-08-19 00:48 | XMS_ITS | Clinical Summary ---
Author Organization [facility] Address [address] [place] [address] Care Team Providers Care Turfgrass Management Professor Name Role Phone Valentín Leon MD Primary Care Provider [phone] Allergies No known active allergies Medications miconazole 2 % vaginal cream Place 1 applicator vaginally nightly at bedtime. Active Active Problems No known active problems Social History Tobacco Use Types Packs/Day Years Used Date Smoking Tobacco: Never Smokeless Tobacco: Never Alcohol Use Standard Drinks/Week Comments No 0 (1 standard drink = 0.6 oz pur e alcohol) AUDIT-C Answer Date Recorded Frequency of Alcohol Consumption Never 10/31/2018 Average Number of Drinks Not on file 019 Frequency of Binge Drinking Not on file 06/2019 Comments Unknown Sex and Gender Information Value Date Recorded Sex Assigned at Not on file Legal Sex Female 10:13 AM BATCH PLANT SUPERVISOR Gender Identity Not on file Sexual Orientation Not on file Last Filed Vital Signs Vital Sign Reading Time Taken Comments Blood Pressure 100/62 10/31/2018 1:09 PM BATCH PLANT SUPERVISOR Pulse 71 10/31/2018 1:09 PM BATCH PLANT SUPERVISOR Temperature 36.5 C (97.7 F) 10/31/2018 1:09 PM BATCH PLANT SUPERVISOR Respiratory Rate - - Oxygen Saturation - - Inhaled Oxygen Concentration - - Weight 64 kg (141 lb) 10/31/2018 1:09 PM BATCH PLANT SUPERVISOR Height 167.6 cm (5' 6) 10/31/2018 1:09 PM BATCH PLANT SUPERVISOR Body Mass Index 22.76 10/31/2018 1:09 PM BATCH PLANT SUPERVISOR Plan of Treatment Health Maintenance Due Date Last Done Comments Cervical Cancer Screening Pa p Smear (Age 30 to 64) Every 3 Years 1985 Annual Physical 1988 Hepatitis C 2003 DTaP, Tdap and Td Vaccines ( 1 - Tdap) 2004 Hepatitis B Vaccines (1 of 3 - 19+ 3-dose series) 2004 HPV Vaccines (1 - 3-dose SCD M series) 2012 Cervical Cancer Screening Pa p with HPV Testing (Age 30 to 64) Every 5 Years 2015 Cervical Cancer Screening with HPV 2015 COVID-19 Vaccine (2024-2 6 season) 2025 Influenza Adult (#1) 2025 Hepatitis A Vaccines Aged Out No long er eligible based on patient's age to complete this topic Meningococcal B Vaccine Aged Out No l onger eligible based on patient's age to complete this topic Meningococcal Vaccine Aged Out No camille lina eligible based on patient's age to complete this topic Pneumococcal Vaccine: Pediat rics (0 to 5 Years) and At-Risk Patients (6 to 49 Years) Aged Out No longer eligible b ased on patient's age to complete this topic RSV Immunizations Under 20 Months Aged Out No longer eligible based on patient's age to complete this topic Insurance Care Teams Turfgrass Management Professor Relationship Specialty Start Date End Date Valentín Leon MD 2015 [place] [address] PCP - General AGRICULTURE SPECIALIST ONCOLOGY 10/25/18
--- OUTSIDE RECORDS SUMMARY | 2025-08-19 00:49 | XMS_ITS | Data Portability ---
Author Organization [facility] Address [address] [place] [address] [place] [address] Care Team Providers Care Art Gilder Name Role Phone BEN MENON Primary Care Provider [phone] Assessment No assessment recorded. Plan of Treatment Reminders Order Date Submit Date Provider Last Modified By Organization Details Last Modified Time Details Appointments SURG Lap Ovarian Cystectom y 2024 08:30A Gerry LEON MD Not available Not available Not available SURG POST OP 2024 03:45P Gerry LEON MD Not available Not available Not available Lab urinalysi s, dipstick 2024 025 [email or web address] [place] [facility] [address], [place], [address], 06/20/2025 11:33:11 dhea-sulf ate, serum 2024 025 [facility] (Lab), [address], [place], [address], 06/24/2025 15:49:30 hormone panel, serum or plasma 2024 025 [facility] (Lab), [address], [place], [address], 06/24/2025 15:49:29 progester one, serum 2024 025 [facility] (Lab), [address], [place], [address], 06/24/2025 15:49:28 prolactin , serum 2024 025 [facility] (Lab), [address] [facility], [place], [address], 06/24/2025 15:49:28 shbg (sex hormone-b inding globulin) , serum 2024 025 [facility] (Lab), [address] [facility], [place], [address], 06/24/2025 15:49:29 TSH, serum or plasma 2024 025 [facility] (Lab), [address] [facility], [place], [address], 06/24/2025 15:49:29 testoster one free/test osterone total, ratio, serum 2024 025 [facility] (Lab), [address] [facility], [place], [address], 06/24/2025 15:49:30 CBC w/ auto diff 2024 025 [facility] (Lab), [address] [facility], [place], [address], 06/24/2025 15:49:27 test, urine 2024 025 [email or web address] [place], [address], [place], [address], 06/20/2025 11:48:35 urinalysi s, dipstick 2022 023 [email or web address] [place], [address], [place], [address], 08/31/2023 12:01:48 Referral None recorded. Procedures None recorded. Surgeries laparosco pic ovarian cystectom y (SURG) 2024 025 [id number] [facility], [address], [place], [address], 07/17/2025 10:25:32 salpingec margarito, laparosco pic (SURG) 2024 025 [id number] [facility], [address], [place], [address], 07/14/2025 16:01:32 hysterosc opy, surgical, with biopsy of endometri um and/or polypecto my (SURG) 2024 025 [id number] [facility], [address], [place], [address], 07/14/2025 11:40:04 Imaging US, pelvis 2024 025 [email or web address] [place], [place], [address], 06/30/2025 08:53:27 US, transvagi nal 2024 025 [email or web address] [place], [place], [address], 06/30/2025 08:53:27 Medication Orders None recorded. Patient TargetsNo targets recorded. Patient InstructionsNo instructions recorded. Reason for Referral None Reported. Results Created Date Observation Date Name Description Value Unit Range Abnormal Flag Note LastModifiedBy Organization Detail LastModifiedTime 08/07/2008/07/2023 VAGIN ITIS/ VAGIN OSIS, DNA PROBE nicole sp. detection, direct probe Positi ve negati ve abnormal Not Available [facility] (Lab) [address] [place], [address], 08/08/2023 13:56:14 08/07/2008/07/2023 VAGIN ITIS/ VAGIN OSIS, DNA PROBE gardnerella vag. detection, direct probe Positi ve negati ve abnormal Not Available [facility] (Lab) [address] [place], [address], 08/08/2023 13:56:14 08/07/20 23 08/07/2023 VAGIN ITIS/ VAGIN OSIS, DNA PROBE trichomonas vag. detection, direct probe Negati ve negati ve Not Available [facility] (Lab) [address] [facility], [place], [address], 08/08/2023 13:56:14 08/31/20 23 08/31/2023 VAGIN ITIS/ VAGIN OSIS, DNA PROBE nicole sp. detection, direct probe Negati ve negati ve Not Available [facility] (Lab) [address] [facility], [place], [address], 09/01/2023 12:53:18 08/31/20 23 08/31/2023 VAGIN ITIS/ VAGIN OSIS, DNA PROBE gardnerella vag. detection, direct probe Positi ve negati ve abnormal Not Available [facility] (Lab) [address] [facility], [place], [address], 09/01/2023 12:53:18 08/31/20 23 08/31/2023 VAGIN ITIS/ VAGIN OSIS, DNA PROBE trichomonas vag. detection, direct probe Negati ve negati ve Not Available [facility] (Lab) [address] [facility], [place], [address], 09/01/2023 12:53:18 08/31/20 23 08/31/2023 urina lysis , dipst ick Leukocytes Negati ve Not Available [place] [address], [place], [address], 08/31/2023 11:59:48 08/31/20 23 08/31/2023 urina lysis , dipst ick Nitrite Negati ve Not Available [place] [address], [place], [address], 08/31/2023 11:59:48 08/31/20 23 08/31/2023 urina lysis , dipst ick Urobilinogen Negati ve Not Available [place] [address], [place], [address], 08/31/2023 11:59:48 08/31/20 23 08/31/2023 urina lysis , dipst ick Protein Negati ve Not Available [place] [address], [place], [address], 08/31/2023 11:59:48 08/31/2008/31/2023 urina lysis , dipst ick pH 8 Not Available [place] [address], [place], [address], 08/31/2023 11:59:48 08/31/2008/31/2023 urina lysis , dipst ick Specific Viper 1.005 Not Available [facility] roddy [address], [place], [address], 08/31/2023 11:59:48 08/31/20 23 08/31/2023 urina lysis , dipst ick Ketone Negati ve Not Available [place] [address], [place], [address], 08/31/2023 11:59:48 08/31/2008/31/2023 urina lysis , dipst ick Bilirubin Negati ve Not Available [place] [address], [place], [address], 08/31/2023 11:59:48 08/31/2008/31/2023 urina lysis , dipst ick Glucose Negati ve Not Available [place] [address], [place], [address], 08/31/2023 11:59:48 08/31/20 23 08/31/2023 urina lysis , dipst ick Appearance Clear Not Available [facility] [address], [place], [address], 08/31/2023 11:59:48 08/31/2008/31/2023 urina lysis , dipst ick Color Yellow Not Available [place] [address], [place], [address], 08/31/2023 11:59:48 06/20/2006/20/2025 CBC W/DIF F WBC 5.5 10'3/ uL 3.5-10 .5 Not Available [facility] (Lab) [address], [place], [address], 06/24/2025 15:49:27 06/20/2006/20/2025 CBC W/DIF F RBC 4.23 10'6/ uL (based on docume nted legal sex) 3.80-5 .20 Not Available [facility] (Lab) [address], [place], [address], 06/24/2025 15:49:27 06/20/20 25 06/20/2025 CBC W/DIF F HGB 12.9 g/dL (based on docume nted legal sex) 11.6-1 5.4 Not Available [facility] (Lab) [address], [place], [address], 06/24/2025 15:49:27 06/20/2006/20/2025 CBC W/DIF F HCT 39.6 % (based on docume nted legal sex) 34.0-4 5.0 Not Available [facility] (Lab) [address], [place], [address], 06/24/2025 15:49:27 06/20/2006/20/2025 CBC W/DIF F MCV 93.6 fL 80.0-9 9.0 Not Available [facility] (Lab) [address], [place], [address], 06/24/2025 15:49:27 06/20/20 25 06/20/2025 CBC W/DIF F MCH 30.5 pg 27.0-3 4.0 Not Available [facility] (Lab) [address], [place], [address], 06/24/2025 15:49:27 06/20/20 25 06/20/2025 CBC W/DIF F MCHC 32.6 g/dL 32.0-3 5.5 Not Available [facility] (Lab) [address], [place], [address], 06/24/2025 15:49:27 06/20/2006/20/2025 CBC W/DIF F RDW 11.9 % 11.0-1 5.0 Not Available [facility] (Lab) [address], [place], [address], 06/24/2025 15:49:27 06/20/2006/20/2025 CBC W/DIF F plt 222 10'3/ uL 150-40 0 Not Available [facility] (Lab) [address], [place], [address], 06/24/2025 15:49:27 06/20/2006/20/2025 CBC W/DIF F MPV 11.8 fL 8.8-12 .1 Not Available [facility] (Lab) [address], [place], [address], 06/24/2025 15:49:27 06/20/2006/20/2025 CBC W/DIF F NRBC's 0.0 % 0.0 Not Available [facility] (Lab) [address], [place], [address], 06/24/2025 15:49:27 06/20/2006/20/2025 CBC W/DIF F absolute NRBCs 0.0 10'3/ uL no refere nce range establ ished Not Available [facility] (Lab) [address], [place], [address], 06/24/2025 15:49:27 06/20/20 25 06/20/2025 CBC W/DIF F neutrophils 61.6 % 34.0-7 3.0 Not Available [facility] (Lab) [address] [facility], [place], [address], 06/24/2025 15:49:27 06/20/20 25 06/20/2025 CBC W/DIF F lymphocytes 29.4 % 15.0-5 0.0 Not Available [facility] (Lab) [address] [facility], [place], [address], 06/24/2025 15:49:27 06/20/20 25 06/20/2025 CBC W/DIF F monocytes 7.0 % 1.0-15 .0 Not Available [facility] (Lab) [address] [facility], [place], [address], 06/24/2025 15:49:27 06/20/20 25 06/20/2025 CBC W/DIF F eosinophils 0.9 % 0.0-8. 0 Not Available [facility] (Lab) [address] [facility], [place], [address], 06/24/2025 15:49:27 06/20/20 25 06/20/2025 CBC W/DIF F basophils 0.7 % 0.0-2. 0 Not Available [facility] (Lab) [address] [place], [address], 06/24/2025 15:49:27 06/20/20 25 06/20/2025 CBC W/DIF F immature granulocytes 0.4 % no define d refere nce range Immat ure Granu locyt es (IG) repre sents autom ated enume ratio n of Metam yeloc ytes, Myelo cytes and Promy elocy alma rosa when IG is < 5%. Blast s are not inclu ded in IG and repor desmond separ ately if prese nt. Not Available [facility] (Lab) [address] [facility], [place], [address], 06/24/2025 15:49:27 06/20/20 25 06/20/2025 CBC W/DIF F absolute neutrophils 3.4 10'3/ uL 1.5-8. 0 Not Available [facility] (Lab) [address] [facility], [place], [address], 06/24/2025 15:49:27 06/20/20 25 06/20/2025 CBC W/DIF F absolute lymphocytes 1.6 10'3/ uL 1.0-4. 0 Not Available [facility] (Lab) [address] [facility], [place], [address], 06/24/2025 15:49:27 06/20/20 25 06/20/2025 CBC W/DIF F absolute monocytes 0.4 10'3/ uL 0.2-1. 0 Not Available [facility] (Lab) [address] [facility], [place], [address], 06/24/2025 15:49:27 06/20/20 25 06/20/2025 CBC W/DIF F absolute eosinophils 0.1 10'3/ uL 0.0-0. 6 Not Available [facility] (Lab) [address] [facility], [place], [address], 06/24/2025 15:49:27 06/20/20 25 06/20/2025 CBC W/DIF F absolute basophils 0.0 10'3/ uL 0.0-0. 3 Not Available [facility] (Lab) [address] [facility], [place], [address], 06/24/2025 15:49:27 06/20/20 25 06/20/2025 CBC W/DIF F absolute immature granulocytes 0.0 10'3/ uL 0.00-0 .10 Refer ence range s for nonbi nary/ inter sex or unspe cifie d gende r patie nts have not been estab lishe d. Steffen e refer to the follo wing table for range s estab lishe d for cisge nder patie nts and evalu ate in the clini alcon robson xt of the indiv idual patie nt: https ://aviva east book. nm.or g/gen derx Not Available [facility] (Lab) [address] [facility], [place], [address], 06/24/2025 15:49:27 06/20/20 25 06/20/2025 PROGE STERO NE progesterone 0.23 NG/mL This assay was perfo rmed using [employer] ratio n reage nts and test kits. Value s obtai reddy with other assay metho ds or kits canno t be used inter schneider eably . Femal e Proge stero ne Range s: Folli cular phase 0.06- 0.89 ng/mL Ovula tion phase 0.12- 12.00 ng/mL Lutea l phase 1.83- 23.90 ng/mL Postm enopa usal <0.05 -0.13 ng/mL Healt hy Pregn ant Women 1st Trime ster 11.0- 44.30 2nd Trime ster 25.40 -83.3 0 3rd Trime ster 58.70 -214. 00 Not Available [facility] (Lab) [address] [facility], [place], [address], 06/24/2025 15:49:28 06/20/20 25 06/20/2025 PROLA CTIN prolactin, total 6.74 NG/mL 4.79-2 3.30 This assay was perfo rmed using [employer] ratio n reage nts and test kits. Value s obtai reddy with other assay metho ds or kits canno t be used inter schneider eably . Not Available [facility] (Lab) [address] [place], [address], 06/24/2025 15:49:28 06/20/20 25 06/20/2025 FSH, LH, ESTRA DIOL estradiol 31.4 pg/mL This assay was perfo rmed using [employer] n reage nts and test kits. Value s obtai reddy with other assay metho ds or kits canno t be used [facility] . Femal e Estra diol Range s: Folli cular phase 12.4- 233 pg/mL Ovula tion phase 41.0- 398 pg/mL Lutea l phase 22.3- 341 pg/mL Postm enopa usal <5-13 8 pg/mL Healt hy Pregn ant Women 1st Trime ster 154-3 243 pg/mL 2nd Trime ster 1561- 28663 pg/mL 3rd Trime ster 8525- >3000 0 pg/mL Not Available [facility] (Lab) [address] [place], [address], 06/24/2025 15:49:29 06/20/2006/20/2025 FSH, LH, ESTRA DIOL FSH 14.3 mIU/m L This assay was perfo rmed using [employer] n reage nts and test kits. Value s obtai reddy with other assay metho ds or kits canno t be used inter [facility] . Femal es Folli cular : 3.5-1 2.5 mIU/m L Ovula tion: 4.7-2 1.5 mIU/m L Lutea l: 1.7-7 .7 mIU/m L Postm enopa use: 25.8- 134.8 mIU/m L Not Available [facility] (Lab) [address] [facility], [place], [address], 06/24/2025 15:49:29 06/20/2006/20/2025 FSH, LH, ESTRA DIOL LH 4.9 mIU/m L This assay was perfo rmed using [employer] n reage nts and test kits. Value s obtai reddy with other assay metho ds or kits canno t be used [facility] . Femal es Mid-F ollic ular: 2.4-1 2.6 mIU/m L Mid-C ycle: 14.0- 95.6 mIU/m L Mid-L uteal : 1.0-1 1.4 mIU/m L Postm enopa use: 7.7-5 8.5 mIU/m L Not Available [facility] (Lab) [address] [facility], [place], [address], 06/24/2025 15:49:29 06/20/20 25 06/20/2025 TSH, REFLE X FREE T4 TSH 1.68 uIU/m L 0.30-5 .33 Not Available [facility] (Lab) [address] [facility], [place], [address], 06/24/2025 15:49:29 06/20/20 25 06/20/2025 HUMAN SEX HORMO NE MARINO NG GLOBU ADARSH sex hormone binding globulin 69.7 nmole s/L 18.2-1 35.5 Not Available [facility] (Lab) [address] [facility], [place], [address], 06/24/2025 15:49:29 06/20/20 25 06/20/2025 DHEA SULFA TE DHEA-sulfate 210 ug/dL Femal e Range s Age(y ) Range (ug/d L) 10-15 34-28 0 15-20 65-36 8 20-25 148-4 07 25-35 99-34 0 35-45 61-33 7 45-55 35-25 6 55-65 19-20 5 65-75 9-246 > 75 12-15 4 Not Available [facility] (Lab) [address] [facility], [place], [address], 06/24/2025 15:49:30 06/20/20 25 06/20/2025 TESTO STERO NE, FREE( DIALY SIS) AND TOTAL (LC/M S/MS) testosterone , total 17 NG/dL 2-45 For addit ional infor steffen santiago e refer to http: //ina duran.que stdia gnost ics.c om/fa q/ Total Testo stero neLCM [facility] Q165 (This link is being provi ded for infor ruby nal/ educa janey l purpo ses only. ) This test was devel oped and its janes tical perfo rmanc e jerson cteri stics have been deter mined by [employer] [place], [place]. It has not been clear ed or appro derek by the U.S. Food and Drug Admin istra tion. This assay has been valid ated pursu ant to the CLIA regul ation s and is used for clini alcon purpo ses. Not Available [facility] (Lab) [address] [place], [address], 06/24/2025 15:49:30 06/20/2006/20/2025 TESTO STERO NE, FREE( DIALY SIS) AND TOTAL (LC/M S/MS) testosterone , free 1.4 pg/mL 0.1-6. 4 This test was devel oped and its janes tical perfo rmanc e jerson cteri stics have been deter mined by [employer] [place]. It has not been clear ed or appro derek by the U.S. Food and Drug Admin istra tion. This assay has been valid ated pursu ant to the CLIA regul ation s and is used for clini alcon purpo ses. Perfo rming Organ izati on Infor ruby n: Site ID: [id number] Name: [employer] [facility]wayne [facility] Addre ss: [id number] [employer] [place], [place] Direc tor: Nat Gamboa MD PhD Not Available [facility] (Lab) [address] [place], [address], 06/24/2025 15:49:30 06/20/2006/20/2025 pregn teena test, urine HCG negati ve Not Available [place] [address] [place], [address], 06/20/2025 11:48:15 06/20/2006/20/2025 urina lysis , dipst ick Leukocytes - Not Available [facility] [address], [place], [address], 06/20/2025 11:32:34 06/20/20 25 06/20/2025 urina lysis , dipst ick Nitrite - Not Available [place] [address], [place], [address], 06/20/2025 11:32:34 06/20/20 25 06/20/2025 urina lysis , dipst ick Urobilinogen - Not Available [facility] [address], [place], [address], 06/20/2025 11:32:34 06/20/20 25 06/20/2025 urina lysis , dipst ick Protein trace Not Available [place] [address], [place], [address], 06/20/2025 11:32:34 06/20/20 25 06/20/2025 urina lysis , dipst ick pH 9 Not Available [place] [address], [place], [address], 06/20/2025 11:32:34 06/20/20 25 06/20/2025 urina lysis , dipst ick Blood trace Not Available [place] [address], [place], [address], 06/20/2025 11:32:34 06/20/20 25 06/20/2025 urina lysis , dipst ick Specific Viper 1.[address] [facility] [address], [place], [address], 06/20/2025 11:32:34 06/20/20 25 06/20/2025 urina lysis , dipst ick Ketone - Not Available [place] [address], [place], [address], 06/20/2025 11:32:34 06/20/20 25 06/20/2025 urina lysis , dipst ick Bilirubin - Not Available [facility] [address], [place], [address], 06/20/2025 11:32:34 06/20/2006/20/2025 urina lysis , dipst ick Glucose - Not Available [place] [address], [place], [address], 06/20/2025 11:32:34 06/20/2006/20/2025 urina lysis , dipst ick Appearance clear Not Available [facility] [address], [place], [address], 06/20/2025 11:32:34 06/20/2006/20/2025 urina lysis , dipst ick Color light yellow Not Available [place] [address], [place], [address], 06/20/2025 11:32:34 06/27/20 25 06/27/2025 US, pelvi s No observ ation record ed. [address], [facility], [place], [address], 07/01/2025 12:12:02 06/27/20 25 06/27/2025 US, pelvi s No observ ation record ed. [facility] [address], [place], [address], 06/27/2025 17:22:45 06/27/20 25 06/27/2025 US, trans vagin al No observ ation record ed. [facility] [address], [place], [address], 06/27/2025 17:22:56 Result Notes None recorded. Problems Name Problem SNOMED Code Status Onset Date Resolution Date Notes Provider Name and Address Organization Details [facility] 201012/27/2021 Routine gynecolo gical examinat ion;Prac linh ID: 0001 Jenn Foote [facility] 2 11:23:24 Pregnanc y test positive [id number] Completed 201012/27/2021 Positive Pregnanc y Test;Pra ctice ID: 0001 Jenn Foote [facility] 2 11:23:11 Primigra anahi [id number] Completed 201012/27/2021 Supervis ion of normal first pregnanc y;Practi ce ID: 0001 Jenn Foote [facility] 2 11:23:13 Delivery normal [id number] Completed 201012/27/2021 Normal delivery ;Practic e ID: 0001 Jenn Foote [facility] 2 11:22:48 Postpart um care Completed 201012/27/2021 Routine postpart um follow-u p;Record ed Elsewher e: No Locat ion: [facility] S ource: EHR Siebel Crm Developer macie: N Practi ce ID: [id number] Panfilo lable Time: 09:45:00 AM Jenn Foote [facility] 2 11:23:10 Screenin g for malignan t neoplasm of cervix Completed 201312/27/2021 Screenin g for malignan t neoplasm s of the cervix;R ecorded Elsewher e: No Locat ion: [facility] S ource: EHR [employer] C[employer] Developer macie: N Practi ce ID: [id number] Panfilo lable Time: 02:30:00 PM Jenn Foote [facility] 2 11:23:14 Vaginiti s and vulvovag initis Completed 201312/27/2021 Vaginiti s and vulvovag initis, unspecif ied;Valdez rded Elsewher e: No Locat ion: [facility] S ource: EHR [employer] C[employer] Developer macie: N Practi ce ID: [id number] Panfilo lable Time: 02:30:00 PM Jenn causey [facility] 2 11:23:29 Overweig ht [id number] Completed 201412/27/2021 Overweig ht;Recor ded Elsewher e: No Locat ion: Brooklynneli javier [facility] S ource: EHR [employer] C[employer] Developer macie: N Practi ce ID: [id number] Panfilo lable Time: 02:00:00 PM Jenn causey, [facility] 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 2 11:23:22 Secondar y amenorrh ea [id number] Completed 201612/27/2021 Secondar y amenorrh ea;Recor ded Elsewher e: No Locat ion: [facility] S ource: EHR [employer] Crm Developer macie: N Practi ce ID: [id number] Panfilo lable Time: 01:00:00 PM Jenn causey [facility] 2 11:23:16 Uterine size for dates discrepa ncy Completed 201612/27/2021 Uterine size-cheri e discrepa ncy, first trimeste r;Practi ce ID: 0001 Jenn causey, [facility] 2 11:23:27 Gestatio n period, 9 weeks [id number] Completed 201612/27/2021 9 weeks gestatio n of pregnanc y;Practi ce ID: 0001 eJnn causey, [facility] 2 11:22:57 Hemorrha gic complica tion of pregnanc y [id number] Completed 12/29/ 2017 12/27/2021 Other hemorrha ge in early pregnanc y;Practi ce ID: 0001 Jenn causey, [facility] 2 11:22:59 Gestatio n period, 17 weeks [id number] Completed 201612/27/2021 17 weeks gestatio n of pregnanc y;Practi ce ID: 0001 Jenn causey, [facility] 2 11:22:54 Antenata l screenin g for malforma tion Completed 201712/27/2021 Encounte r for antenata l screenin g for malforma tions;Re corded Elsewher e: No Locat ion: [facility] S ource: EHR [employer] Crm Developer macie: N Kristalti ce ID: [id number] Panfilo lable Time: 03:30:00 PM Jenn causey [facility] 2 11:22:44 Normal pregnanc y in multigra anahi [id number] Completed 201712/27/2021 Encounte r for suprvsn of normal pregnanc y, third trimeste r;Record ed Elsewher e: No Locat ion: [facility] S ource: EHR Siebel Crm Developer macie: N Robbie ce ID: [id number] Panfilo lable Time: 08:45:00 AM Jenn causey [facility] 2 11:23:06 Lacerati on of female perineum Completed 201712/27/2021 First degree perineal lacerati on during delivery ;Practic e ID: [id number] Jenn causey, [facility] 2 11:23:02 Single live from singleto n pregnanc y [id number] Completed 201712/27/2021 Single live ;Pr actice ID: [id number] Jenn causey, [facility] 2 11:23:19 Gestatio n period, 39 weeks [id number] Completed 201712/27/2021 39 weeks gestatio n of pregnanc y;Practi ce ID: [id number] Jenn Foote [facility] 2 11:22:55 Infectio n of nipple associat ed with lactatio n [id number] Completed 201712/27/2021 Infectio n of nipple associat ed with lactatio n;Practi ce ID: 0001 Jenn causey [facility] 2 11:23:01 Lochia finding Completed 201712/27/2021 Encounte r for routine postpart um follow-u p;Record ed Elsewher e: No Locat ion: [facility] S ource: EHR Siebel Crm Developer macie: N Practi ce ID: [id number] Panfilo lable Time: 01:45:00 PM Jenn Foote [facility] 2 11:23:04 Procedur e by method Completed 201712/27/2021 Encounte r for other general counseli ng and advice on contrace ption;Re corded Elsewher e: No [facility] ource: EHR Siebel Crm Developer macie: N Practi ce ID: [id number] Panfilo lable Time: 01:45:00 PM Jenn Foote [facility] 2 11:22:52 Dysuria [id number] Completed 201712/27/2021 Dysuria; Practice ID: [id number] Jenn Foote [facility] 2 11:22:[address] Concept Completed 201712/27/2021 Encntr for general adult medical exam w/o abnormal findings ;Recorde d Elsewher e: No Locat ion: [facility] S ource: EHR Siebel Crm Developer macie: N Practi ce ID: [id number] Panfilo lable Time: 03:00:00 PM Jenn Foote [facility] 2 11:23:20 Acetonur ia [id number] Completed 201712/27/2021 Acetonur ia;Pract ice ID: [id number] Jenn Foote [facility] 2 11:22:43 Urinary tract infectio us disease [id number] Completed 201712/27/2021 Urinary tract infectio n, site not specifie d;Record ed Elsewher e: No Locat ion: [facility] S ource: EHR Siebel Crm Developer macie: N Practi ce ID: [id number] Panfilo lable Time: 11:56:52 AM Jenn Foote [facility] 2 11:23:26 Contrace ptive sheath status [id number] Completed 201812/27/2021 Encounte r for initial prescrip tion of other contrace ptives;R ecorded Elsewher e: No Locat ion: [facility] S ource: EHR Siebel Crm Developer macie: N Practi ce ID: 0001 Panfilo lable Time: 09:30:00 AM Jenn Foote [facility] 2 11:22:46 Problem Notes None recorded. Procedures Surgical History Date Name Laterality Status Provider Name and Address Organization Details Recorded Time 06/23/20 23 [facility] 10:13:24 10/23/19 23 cardiac catheterization completed Cielo Schneider [facility] 08/07/2023 10:16:25 10/23/19 23 closure of patent foramen ovale completed Cielo Schneider [facility] 08/07/2023 10:16:29 12/29/19 22 Date of Last Pap Smear completed Jaycee Mcgee [facility] 06/08/2023 12:14:40 Imaging Results None recorded. Procedure Notes None recorded. Medical Equipment None Reported. Allergies No known drug allergies Medications Name Sig Start Date Stop Date Status Note LastModified by Organization Details LastModified Time cyclobenz aprine 10 mg tablet 03/08 /2022 completed Not Available Not Available Not Available amoxicill in 500 mg capsule TAKE 1 CAPSULE BY MOUTH EVERY 6 HOURS 06/08 completed Not Available Not Available Not Available atorvasta tin 20 mg tablet TAKE 1 TABLET BY MOUTH EVERY DAY 11/22 completed Not Available Not Available Not Available atorvasta tin 10 mg tablet TAKE 1 TABLET BY MOUTH EVERY DAY 08/07 completed Not Available Not Available Not Available azithromy devan 250 mg tablet TAKE 2 TABLETS BY MOUTH TODAY, THEN TAKE 1 TABLET DAILY FOR 4 DAYS DIRECTED 05/01 completed Not Available Not Available Not Available Necon 1/35 (28) 1 mg-35 mcg tablet TAKE 1 TABLET BY MOUTH EVERY DAY FOR 28 DAYS 08/18 completed Prescrib beto Beavers e: No Locat ion: Harish herrera [facility] odify By: smcholgery Marina r DateTime : 11/03/19 03:00:00 PM Not Available Not Available Not Available nystatin 100,000 unit/gram topical ointment 05/01 completed Not Available Not Available Not Available hydrocodo ne 5 mg-acetam inophen 325 mg tablet 1 OR 2 TABS EVERY 6 HOURS NEEDED FOR PAIN 08/07 completed Not Available Not Available Not Available fluconazo le 200 mg tablet TAKE 1 TABLET BY MOUTH EVERY OTHER DAY FOR 3 DOSES 08/07 completed Not Available Not Available Not Available metronida zole 0.75 % (37.5 mg/5 gram) vaginal gel insert 1 applicat orful by vaginal route every day at bedtime for 5 nights 05/01 completed Not Available Not Available Not Available prednison e 20 mg tablet TAKE 2 TABLETS DAILY FOR 5 DAYS 05/01 completed Not Available Not Available Not Available terconazo le 0.8 % vaginal cream INSERT 1 APPLICAT ORFUL VAGINALL Y EVERY DAY AT BEDTIME FOR 3 DAYS 08/31 completed Not Available Not Available Not Available penicilli n V potassium 500 mg tablet TAKE 500 MG ORALLY EVERY 12 HOURS FOR 10 DAYS 05/01 completed Not Available Not Available Not Available clopidogr el 75 mg tablet TAKE 1 TABLET BY MOUTH EVERY DAY 08/07 completed Not Available Not Available Not Available sulfameth oxazole 800 mg-trimet hoprim 160 mg tablet TAKE 1 TABLET BY MOUTH EVERY 12 HOURS FOR 5 DAYS 11/22 completed Not Available Not Available Not Available aspirin 81 mg tablet,de layed release TAKE 1 TABLET BY MOUTH EVERY DAY 04/30 completed Not Available Not Available Not Available amoxicill in 500 mg tablet take 1 tablet by oral route 3 times every day 02/15 completed Prescrib ed Elsewher e: No Locat ion: [facility] odify By: sami germanunttrish DateTime : 09/05/20 18 03:00:00 PM Not Available Not Available Not Available nystatin- triamcino lone 100,000 unit/gram -0.1 % topical ointment 05/01 completed Not Available Not Available Not Available hydrocort isone 2.5 % topical cream with perineal applicato r apply by topical route 2- 4 times every day a thin layer to the affected area(s) 1 week 02/15 completed Prescrib ed Elsewher e: No [facility] By: amgarland Herrera ncounter DateTime : 10/12/20 18 11:15:20 AM Not Available Not Available Not Available famotidin e 20 mg tablet TAKE 1 TABLET BY MOUTH EVERY DAY IN THE EVENING 08/07 completed Not Available Not Available Not Available Diflucan 100 mg tablet take 2 tablets by oral route on day one then 1 tablet every day for 13 days 02/15 completed Prescrib ed Elsewher e: No Locat ion: [facility] odify By: amgarland Herrera ncounter DateTime : 04/02/20 18 04:45:00 PM Not Available Not Available Not Available dicyclomi ne 20 mg tablet TAKE 1 TABLET BY MOUTH 3 TIMES A DAY 06/08 completed Not Available Not Available Not Available phenazopy ridine 100 mg tablet TAKE 1 TABLET BY MOUTH THREE TIMES A DAY FOR 7 DAYS 11/22 completed Not Available Not Available Not Available Nortrel 0.5/35 (28) 0.5 mg-35 mcg tablet TAKE 1 TABLET BY MOUTH EVERY DAY 12/28 completed Not Available Not Available Not Available pantopraz ole 40 mg tablet,de layed release TAKE 1 TABLET BY MOUTH EVERY DAY IN THE MORNING 06/08 completed Not Available Not Available Not Available triamcino lone acetonide 0.1 % topical ointment 05/01 completed Not Available Not Available Not Available hydroxyzi ne HCl 25 mg tablet TAKE 1 TABLET BY MOUTH THREE TIMES A DAY NEEDED FOR ANXIETY 08/07 completed Not Available Not Available Not Available gabapenti n 100 mg capsule TAKE 1 CAPSULE AT BEDTIME, AFTER 3 DAYS, TAKE TWICE A DAY, THEN AFTER A WEEK TAKE 3 TIMES PER DAY 11/22 completed Not Available Not Available Not Available fluticaso ne propionat e 50 mcg/actua tion nasal spray,rozina pension USE 1 SPRAY IN EACH NOSTRIL DAILY 06/20 completed Not Available Not Available Not Available amoxicill in 875 mg-potass ium clavulana te 125 mg tablet TAKE 1 TABLET BY MOUTH EVERY 12 HOURS FOR 10 DAYS 05/01 completed Not Available Not Available Not Available Vitamin 27 mg iron-0.8 mg tablet take 1 tablet by oral route every day 07/04 completed Prescrib ed Elsewher e: Yes Loca tion: [facility]ish [facility] odify By: clay Herrera ncounter DateTime : 02/27/20 12 11:00:00 AM Not Available Not Available Not Available Barbra 0.35 mg tablet take 1 tablet by oral route every day 02/15 completed Prescrib ed Elsewher e: No [facility] odify By: sami Herrera ncounter DateTime : 04/20/20 18 01:45:00 PM Not Available Not Available Not Available Microgest in 11/11 (21) 1 mg-20 mcg tablet take 1 tablet by oral route every day 06/21 completed Prescrib ed Elsewher e: No [facility] od[facility] By: al Herrera ncounter DateTime : 06/06/20 13 03:56:20 PM Not Available Not Available Not Available nitrofura ntoin monohydra te/macroc rystals 100 mg capsule TAKE 1 CAPSULE BY MOUTH TWICE A DAY FOR 7 DAYS 02/13 /2023 completed Not Available Not Available Not Available Multi Vitamin 04/30 completed Not Available Not Available Not Available Fluzone Quad (PF) 60 mcg (15 mcg x 4)/0.5 mL IM syringe PHARMACY ADMINIST ERENatali 09/16 completed Not Available Not Available Not Available turmeric 100 mg-christa 150 mg-olive 50 mg-oreg 150 mg-capryl capsule 06/20 completed Not Available Not Available Not Available omega 3 1,000 mg-dha 250 mg-epa 750 mg/5 mL oral liquid Take by oral route. 04/30 completed Not Available Not Available Not Available Collagen 1500 Plus C 06/20 completed Not Available Not Available Not Available Vitals Date Recorded Body height Body mass index (BMI) Body weight Systolic And Diastolic Provider Name and Address Organization Details Last Updated DateTime 05/01/2025 166.37 cm 23.6 kg/m2 34987.3 g 122/82 mm[Hg] Angelina Murphy [facility] 05/01/2025 14:39:47 Date Recorded Body height Body mass index (BMI) Body weight Systolic And Diastolic Provider Name and Address Organization Details Last Updated DateTime 06/20/2025 166.37 cm 23.7 kg/m2 05958.18 g 111/66 mm[Hg] Jeanne Herrmann [facility] 06/20/2025 11:24:34 Date Recorded Body height Body mass index (BMI) Body weight Systolic And Diastolic Provider Name and Address Organization Details Last Updated DateTime 07/14/2025 166.37 cm 23.8 kg/m2 75125.89 g 107/69 mm[Hg] Jaycee Mcgee [facility] 07/14/2025 09:51:52 Date Recorded Body height Body mass index (BMI) Body weight Systolic And Diastolic Provider Name and Address Organization Details Last Updated DateTime 08/31/2023 166.37 cm 26.2 kg/m2 99496.06 g 124/81 mm[Hg] Racheal Starks [facility] 08/31/2023 11:45:24 Social History Question Answer Notes LastModified by Organizat ion Details LastModified Time Tobacco Smoking Status Never Smoker Angelina Murphy marium, [facility] 08/31/2023 11:20:01 Do You Have An Advance Directive? No Information n ot available 12/05/2022 Are You Blind Or Do You Have Difficulty Seeing? No Information n ot available 12/28/2021 What Is Your Level Of Caffeine Consumption? Occasional [email or web address] Information not available 05/01/2025 How Much Tobacco Do You Chew? None Information not available 11/22/2022 In The 14 Days Before Symptom Onset, Have You Had Close Contact With A Laboratory-confirm ed COVID-19 While That Case Was Ill? No Information n ot available 11/22/2022 In The 14 Days Before Symptom Onset, Have You Had Close Contact With A Person Who Is Under Investigation For COVID-19 While That Person Was Ill? No Information not available 11/22/2022 Have You Been To An Area Known To Be High Risk For COVID-19? No Information not available 11/22/2022 Are You Deaf Or Do You Have Serious Difficulty Hearing? No Information not available 12/28/2021 What Type Of Diet Are You Following? REGULAR Information n ot available 12/28/2021 What Is The Highest Grade Or Level Of School You Have Completed Or The Highest Degree You Have Received? [id number] Information not available 06/08/2023 Are There Any Guns Present In Your Home? No Information not available 11/22/2022 Have You Ever Been Counseled For Unhealthy Alcohol Use? No Information not available 08/31/2023 Do You Use Protection During Sex? Always Information not available 11/22/2022 Do You Use Your Seat Belt Or Car Seat Routinely? Yes Information not available 12/28/2021 Are You Sexually Active? Yes [email or web address] Information not available 08/31/2023 Do You Have Smoke And Carbon Monoxide Detectors In Your Home? Yes Information not available 12/28/2021 How Much Tobacco Do You Smoke? No Information not available 11/22/2022 Do You Use Sunscreen Routinely? Yes Information not available 12/28/2021 Have You Used IV Drugs? No Information not available 11/22/2022 Do You Have Difficulty Walking Or Climbing Stairs? No [email or web address] Information not available 08/31/2023 Sex: Unknown Functional Status Question Answer Note LastModified by Organizat ion Details LastModified Time Do you use any illicit or recreational drugs? No Information not available 12/28/2021 What is your level of alcohol consumption? None [email or web address] Information not available 05/01/2025 Are you able to walk independently without assistance or assistive devices? [email or web address] Information not available 12/28/2021 Are you able to care for yourself independently? Yes [email or web address] Information not available 08/31/2023 What is your occupation? [employer] Information not available 11/22/2022 Do you have difficulty dressing, bathing, grooming, or toileting? No [email or web address] Information not available 08/31/2023 What is your exercise level? Moderate Information not available 12/28/2021 Mental Status Question Answer Note LastModified by Organization D etails LastModified Time Do you feel stressed (tense, restless, nervous, or anxious, or unable to sleep at night)? [id number] Information not available 06/08/2023 Family History Relationship Description Onset Age of this Age Resolved Age Notes LastModified by Organization Details LastModified Time Father No current problems or disability Not available 12/28 11:50:57 Mother No current problems or disability Not available 12/28 11:50:57 Medical History Condition Response Allergies (Food, seasonal, environmental ) Y Other Y Breast Cancer N Drug/Latex Allergies/Reactions N Blood Transfusion N Dermatologic Disorders N Lung Disease N Defects or Inherited Disease N Breast Problem N Gestational Diabetes N Hematologic disorders Y Anesthesia Complications N History of STI N Deep Vein Thrombosis N Polycystic ovary syndrome N Anxiety Disorder Y Autoimmune disease N Arthritis Y Infertility N Polyps N Acid Reflux (GERD) Y History of abnormal pap N Cancer N Stroke N Varicosities N Neurologic/Epilepsy Y Endometriosis N High Cholesterol Y Headaches N Fibromyalgia N Kidney Disease N Heart Problems Y Kidney or Bladder Problems N Thyroid Problems N GI Problems Y Eating Disorder N Anemia N Art (IVF or FET) N Psychiatric Illness N Ovarian Cancer N Diabetes N Pulmonary (TB, Asthma) N Hepatitis/Liver Disease N No Past Medical History N Eczema N Urinary Tract Infection Y Abuse/Domestic Violence N Asthma N Trauma/Violence N Depression/ depression Y Heart Disease Y Pre-Eclampsia N Hypertension Y Osteoporosis N Thrombophilias N Gynecological History Statement/Question Response Flow Heavy Date of LMP 07/14/2025 N Was last menstrual period normal Y STIs/STDs N Date of Last Colonoscopy Condoms Desired Control Method Condoms Abnormal Pap N On BCP's at Conception? N HPV Vaccine Y Duration of Flow (days) 5 Current Control Method Condoms Age at First Child 25 Are cycles usually normal Y Frequency of Cycle (Q days) 27 Sexually Active? Y Menses Monthly Y Date of DEXA bone scan Age of first menstrual cycle 14 Date of Last Pap Smear 12/28/2021 Sexual Problems? N LMP Definite N Obstetrics History GPAL:G 2 P 2 0 0 2 Type Value Full Term 2 Living 2 Total 2 Immunizations Vaccine Type Date Status Note Provider Nam e and Address Organization Details Recorded Time Influenza, split virus, quadrivalent, PF 09/11/2021 completed Jenn Foote [facility] 12/28/2021 11:48:25 Past Encounters Encounter ID Performer Location Encounter Start Date Encounter Closed Date Diagnosis/Indication Diagnosis SNOMED-CT Code Diagnosis ICD10 Code Diagnosis IMO Codes Diagnosis Note [id number] Akilah Mohr [facility] [address],[facility] [place] [address] 09/16/2020 12:25:46 09/16/2020 14:42:00 Vaginitis 36160474 N76.0 Exam appears wnl today except for vulvar dryness. We agreed on vag cx's & urine cx sent. Will call with results & send necessary treatment. Daily moisturizi ng recommende d and prn use of tricinolon e if itching gets untolerabl e and moisturizi ng is not enough. Time spent in visit is a total of 15 mins with at least 50% of visit consisting of counseling and review of plan of care. Urinary tr act infectious disease [id number] N39.0 [id number] Akilah Mohr [facility] [address],[place] [address] 12/28/2021 11:35:33 12/28/2021 12:06:40 Gynecologic examination 13077628 Z01.419 Take Calcium with Vitamin D 1200mg daily if not receiving in daily diet. It is strongly advised to have an annual flu shot and up can obtain at most pharmacies . If you have not had a TDap shot in the last 10 years you should obtain one as well. Discussed with patient & provided with informatio n regarding Gardisil vaccine to prevent the 4 strains for HPV that cause cervical cancer if under age 26. Encourage safe sexual practices, to use condoms and limit partners if not already in a monogamous relationsh ip. Do monthly self breast exams. Have mammogram yearly or every other year depending on family history. BRCA testing is now available for patients with strong genetic history of female cancer. If interested contact the office. Engage in daily exercise of low impact aerobic exercise 45-60 minutes 4-5 times weekly. Avoid tobacco and illicit drugs as well as using moderation with alcohol intake less than 1-2 8 oz beverages daily. This lifestyle behavior pattern will lead to less health conditions and longer life span. If BMI greater than 25 weight watchers or dietary consult advised. Patient received above instructio ns, and questions have been answered. If you have any questions please call or respond to this email. Patient was made aware of the patient portal and may obtain a paper copy of today's plan if desired. Pap/hpv sentSTD screenCont raceptionG enetic screen discussedM ammo-n/aCo camille screen n/a [id number] Akilah Mohr [facility] [address] [place] [address] 04/04/2022 10:24:18 04/05/2022 16:22:30 Urinary symptoms 562821859 R39.9 Nurse visit [id number] Akilah Mohr [facility] [address] [place] [address] 06/01/2022 13:59:35 06/01/2022 14:33:47 Urinary symptoms 515440416 R39.9 [id number] Diana Palomo [facility] [address] [place] [address] 11/22/2022 12:04:43 11/22/2022 15:24:32 Pain in pelvis 14386258 R10.2 UA today WNLCx sentSTI endocervic al testing sentVagini tis panel sentVulvar care guidelines discussedR x for nystatin/t riamcinolo ne ointment. Use sparingly on vulva BID x 5 days to help with irritation . Use crisco twice daily to vuvla to help with dryness. Vaginal discharge 906933 006 N89.8 Increased frequency of urination 470488601 R35.0 possible IC given hx of urinary symptoms with (-) cx's in the pastWe discussed triggersWe agreed to urology consult Will await cx's. Patient to notify the office with any new or worsening symptoms. ED precaution s discussed. Time spent in visit is a total of 25 mins with at least 50% of visit consisting of counseling and review of plan of care. Vulval irritation 538476 003 N90.89 Venereal d isease screening 069094273 Z11.3 [id number] SABRINA Abreu [place] [address] [address] 12/05/2022 12:44:09 12/05/2022 14:26:27 Acute urinary tract infection 109429883 N39.0 UA today normal - has been taking azoCx sentWe discussed retreating (+) urine culture with amoxicilli n vs waiting for repeat cx result. She desires treatment now. Rx sent. R/B of medication discussed and accepted by patient. Choices of antibiotic treatment are limited due to specific bacteria and patient's complex medical hx.Will update patient with repeat cx resultShe has urology appointmen t scheduled for evaluation of recurrent UTI's / possible ICDecrease caffeine /carbonati on, spicy foods, citrus, etc. Increase water intake Time spent in visit is a total of 25 mins with at least 50% of visit consisting of counseling and review of plan of care. Urinary tr act infectious disease 91177979 N39.0 Dysuria 03053868 R30.0 [id number] SABRINA Abreu [place] [address] [address] 04/19/2023 11:26:57 04/19/2023 13:52:13 Urinary symptoms 176656106 R39.9 [id number] [facility] [address],[place] [address] 06/08/2023 12:03:37 06/08/2023 12:41:12 Urinary symptoms 896052286 R39.9 Vaginitis 52992317 N76.0 Suspect yeast on exam but sent urine out as a precaution with Hx of UTI's despite neg urine dips.Kacey salguero went on float trip & was in a wet swim suit all day which likely contribute d to these issues.If sx's return contact office for appt. Counseled on medication R/B's, Most common side effects, & use. All questions were answered to patient satisfacti on. STD/Urine cx sent Time spent in visit is a total of 15 mins with at least 50% of visit consisting of counseling and review of plan of care. [id number] SABRINA Abreu [place] [address],[place] [address] 08/07/2023 09:57:20 08/07/2023 11:11:44 Vaginitis 89433078 N76.0 rx sent, r/b/a reviewedvu lvar care guidelines discussedS TI testing declinedva ginitis panel sentRTC if symptoms persist past treatment Time spent in visit is a total of 20 mins with at least 50% of visit consisting of counseling and review of plan of care. Vulval irritation 406543 003 N90.89 [id number] SABRINA Abreu [place] [address],[place] [address] 08/31/2023 11:19:44 08/31/2023 12:24:06 Urinary symptoms 786422191 R39.9 UA - normalnorm al appearing vaginal d/c noted on examvagini tis panel sentSTI testing declineddi scussed normal vaginal d/c characteri stic, will await vaginitis panelvulva r care guidelines discussed Time spent in visit is a total of 22 mins with at least 50% of visit consisting of counseling and review of plan of care. Vaginal discharge 342919 006 N89.8 [id number] Diana Palomo THANG [place] [address],[place] [address] 05/01/2025 14:24:19 05/01/2025 15:57:18 Lesion of vulva 183561469 N90.89 [id number] small cyst (suspect epidermal occlusion cyst) on clitoral hoodasympt omatic, no signs of infections upportive care discussed (warm compress, sitz bath, avoid shaving/wa sue/frict ion, vulvar care guidelines discussed) if persist or becomes symptomati c rec consult for I&D / removal optionsRTC for WWE Time spent in visit is a total of 20 mins with at least 50% of visit consisting of counseling and review of plan of care. [id number] SABRINA Abreu [place] [address],[place] [address] 06/20/2025 11:17:29 06/20/2025 11:51:47 Abnormal uterine bleeding [id number] 9100 N93.9 [id number] we agreed to updated labs and pelvic u/s. She will return to review results and update pap smear. If all wnl continue to monitor cycles and return if irregulari ties continue.Q uestions answered and precaution 's discussed Time spent in visit is a total of 20 mins with at least 50% of visit consisting of counseling and review of plan of care. [id number] Valentín Leon MD [place] [address],[place] [address] 06/27/2025 16:26:06 06/30/2025 08:53:27 Abnormal uterine bleeding 1730809723 9100 N93.9 [id number] Valentín Leon MD [place] [address],[place] [address] 07/14/2025 09:42:32 07/14/2025 10:28:05 Unwanted fertility 851667686 Z30.09 [id number] Endometrial polyp 788107 5176 N84.0 59138 Cyst of right ovary [id number] N83.201 [id number] this patient is a 39-year-ol d female with abnormal uterine bleeding, endometria l polyp, right ovarian cyst, pelvic pain, unwanted fertility. We discussed these findings. We discussed the etiology, natural history, treatment of ovarian cyst. We talked about the etiology, natural history, treatment of endometria l polyps. Her polyp asymptomat ic. Her ovarian cysts asymptomat ic. We agreed to hysterosco py D and C with polypectom y, laparoscop ic right ovarian cystectomy and bilateral salpingect gt. The patient understand s the procedure. The procedure was described to the patient in great detail. the patient also understand s the risks. The risks were also explained in detail. She understand s that injuries May occur during surgery. She understand s these injuries can result in hospitaliz ation, more surgery, and severe illness. She understand s there is risk of hemorrhage and infection. I spent more than 30 minutes on the patient's care in total. Health Concerns Section Related Observation LastModified by Organization Detai ls LastModified Time None Recorded Concern Status LastModified by Organization Details LastModified Time None Recorded Advance Directives Directive N: Payers Insurance Date Sequence Insurance Name Policy Number Policy Espinal Covered Member ID Espinal Member ID Guarantor Name 06/21/2025 1 [facility] PRIOR TO 04/22/2021 (MEDICAID REPLACEMENT - HMO) Stormy Mckenzie [id number] Stormy Mckenzie 08/16/2025 1 [facility] ON OR AFTER 04/22/21 (MEDICAID REPLACEMENT - HMO) Stormy Mckenzie [id number] Stormy Mckenzie Notes Date Note Type Note Provider Name and Address Organization Details Recorded Time 08/31/2023 text/html Vaginal/Vulvar ProblemReported by Patient 37yopresents for f/utreated for BV/yeast at LOVitching/irritation has resolved, feeling much betterhas still noticed some vaginal discharge, clear/whiteneg odors, itching, irritationSA with steady male partner, condoms for BCneg pelvic painslight burning with urination a few days ago that has since resolved SABRINA Abreu [address], [place], [address], [place] [facility] 08/31/2023 12:09:14 05/01/2025 text/html Vaginal/Vulvar ProblemReported by Patient 39yopresents for evaluation of vulvar lesionnoticed small bump on vulva near clitoris a few days ago. No tenderness or pain, no redness/discharge/odo rs/itching/or irritation.denies any shaving/waxing/ or new products to this area SABRINA Abreu [address], [place], [address], [facility] 05/01/2025 15:42:25 06/20/2025 text/html Edward - Abnormal BleedingReported by Patient 39yo [id number] for evaluation of recent irregular period. Had a normal period 06/01 x 4 days. Then started bleeding again 06/15 x 5 days. Moderate flow with clots. No longer bleeding. Historically periods are very regular in timing/duration/flow. SA with steady male partner, no new partners. Uses condoms for BC. Last pap 2021 wnl. No recent stressors or medications changes. SABRINA Abreu [address], [place], [address], [facility] 06/20/2025 11:51:43 07/14/2025 text/html this patient is a 39-year-old female with abnormal uterine bleeding, endometrial polyp, right ovarian cyst, pelvic pain, unwanted fertility. We discussed these findings. We discussed the etiology, natural history, treatment of ovarian cyst. We talked about the etiology, natural history, treatment of endometrial polyps. Her polyp asymptomatic. Her ovarian cysts asymptomatic. We agreed to hysteroscopy D and C with polypectomy, laparoscopic right ovarian cystectomy and bilateral salpingectomy. The patient understands the procedure. The procedure was described to the patient in great detail. the patient also understands the risks. The risks were also explained in detail. She understands that injuries May occur during surgery. She understands these injuries can result in hospitalization, more surgery, and severe illness. She understands there is risk of hemorrhage and infection. I spent more than 30 minutes on the patient's care in total. Valentín Leon MD [address], [place], [address], [facility] 07/14/2025 10:27:25 OBGyn Episode Ob Episode Information Episode Created Date Number of Fetuses Patient Bloodtype Patient rh Status Prepregnancy Weight lbs Domestic Partner Domestic Partner Phone Father Name Bag Sorter Status 12/29/19 1 CLOSED Fetus Data First Name Last Name Admitted to NICU Weight (g) Sex Living Outcome Pediatric Complications Fetus ID Race Codes Race Delivery Type [phone] F Full Term [id number] Vaginal Delivery Juan Calculation Initial Juan Date Initial Exam Date Initial Exam Provider Initial Ultrasound Date Last Menstrual Period Date Ultra Sound Weeks Gestation 0 Eighteen To Twenty Week Juan Update Ultra Sound Date Fundal Height At Umbil Quickening Date Ultra Sound Latest Weeks Gestation Final Juan Confirmed By Final Juan Confirmed Date Final Juan Date Ultra Sound Latest Days Gestation 0 0 Menstrual History Last Menstrual Date Menses Monthly On Bcp Conception Prior Menses Frequency Hcg Plus Date Menarche Onset Age Delivery Information Delivery Date Delivery Type Labor Anesthesia Weeks Gestation Incision Type Labor Labor Length Hrs Delivered By Post Complications Tubal Sterilization Discharge Date Comments 8 Discharge Information Feeding Method Contraceptive Method Maternal HG B and HCT Levels Ob Episode Information Episode Created Date Number of Fetuses Patient Bloodtype Patient rh Status Prepregnancy Weight lbs Domestic Partner Domestic Partner Phone Father Name Bag Sorter Status 12/29/19 1 CLOSED Fetus Data First Name Last Name Admitted to NICU Weight (g) Sex Living Outcome Pediatric Complications Fetus ID Race Codes Race Delivery Type [phone] [phone] F Full Term [id number] Vaginal Delivery Juan Calculation Initial Juan Date Initial Exam Date Initial Exam Provider Initial Ultrasound Date Last Menstrual Period Date Ultra Sound Weeks Gestation 0 Eighteen To Twenty Week Juan Update Ultra Sound Date Fundal Height At Umbil Quickening Date Ultra Sound Latest Weeks Gestation Final Juan Confirmed By Final Juan Confirmed Date Final Juan Date Ultra Sound Latest Days Gestation 0 0 Menstrual History Last Menstrual Date Menses Monthly On Bcp Conception Prior Menses Frequency Hcg Plus Date Menarche Onset Age Delivery Information Delivery Date Delivery Type Labor Anesthesia Weeks Gestation Incision Type Labor Labor Length Hrs Delivered By Post Complications Tubal Sterilization Discharge Date Comments 1 Discharge Information Feeding Method Contraceptive Method Maternal HG B and HCT Levels
[2025-08-19] MEDS: LACTATED RINGERS 1,000 ML 30 ML IV CONT ×2 (06:55→10:12)
[2025-08-19] MEDS: ACETAMINOPHEN 500 MG TABLET 1000 MG PO (07:00)
[2025-08-19] MEDS: KETOROLAC 15 MG/ML VIAL (*BKC) IV PUSH (07:00)
[2025-08-19 07:10] LABS: BEDSIDEPREGUCG Negative (Negative)
--- NOTE | 2025-08-19 08:18 | P.HP_ITS ---
H&P: HPI History of Present Illness Date/Time: 08/19/25 08:18 Chief Complaint: Pelvic pain, unwanted fertility Narrative: this patient is a 39-year-old female with abnormal uterine bleeding, endometrial polyp, right ovarian cyst, pelvic pain, unwanted fertility. We discussed these findings. We discussed the etiology, natural history, treatment of ovarian cyst. We talked about the etiology, natural history, treatment of endometrial polyps. Her polyp are symptomatic. Her ovarian cyst is asymptomatic. We agreed to hysteroscopy D and C with polypectomy, laparoscopic right ovarian cystectomy and bilateral salpingectomy. She understands risks, benefits, and alternatives. She has completed informed consent process is ready to proceed. The patient understands the details of the procedure. The procedure has been explained in detail. She understands the risks. She understands that injuries may occur that result in hospitalization, more surgery, and severe illness. She understands risk of hemorrhage and infection. She denies any chest pain or shortness of breath. She denies any nausea, vomiting, fever, chills. Review of Systems Review of Systems: All systems reviewed & are unremarkable except as noted in HPI and below Constitutional: Constitutional: Denies chills, Denies fatigue, Denies fever(s) and Denies weakness Eyes: Eyes: Denies blurry vision, Denies change in vision, Denies loss of peripheral vision, Denies loss of vision, Denies other visual disturbances and Denies eye pain ENT: Denies vertigo, Denies dizziness, Denies hearing loss, Denies mouth pain, Denies nasal obstruction, Denies neck mass and Denies neck pain Cardiovascular: Cardiovascular: Denies chest pain, Denies diaphoresis, Denies syncope, Denies leg edema and Denies dyspnea Respiratory: Respiratory: Denies chest congestion, Denies cough, Denies hemoptysis, Denies dyspnea and Denies wheezing Gastrointestinal: Gastrointestinal: Denies abdominal pain, Denies constipation, Denies diarrhea, Denies nausea and Denies vomiting Genitourinary: Genitourinary: Denies hematuria, Denies change in libido, Denies nocturia, Denies genital lesions, Denies flank pain and Denies urinary urgency Musculoskeletal: Musculoskeletal: Denies abnormal gait, Denies back pain, Denies myalgias, Denies arthralgias, Denies joint swelling, Denies muscle weakness and Denies neck pain Integumentary/Breasts: Skin/Breast: Denies swelling, Denies breast pain, Denies breast mass, Denies dry skin, Denies nipple discharge, Denies unusual bruising and Denies jaundice Neurologic: Denies Neuro-related abnormal movements, Denies Abnormal speech present, Denies abnormal gait, Denies behavioral changes, Denies confusion, Denies vertigo, Denies dizziness, Denies syncope, Denies loss of vision, Denies memory loss, Denies convulsions and Denies weakness Psychiatric: Psychiatric: Denies abnormal sleep pattern, Denies behavioral changes, Denies change in libido, Denies confusion, Denies depression, Denies anhedonia and Denies memory loss Endocrine: Endocrine: Reports no additional endocrine complaints, Denies change in libido and Denies fatigue Hematologic/Lymphatic: Hematologic/Lymphatic: Reports no additional hematologic/lymphatic complaints Allergic/Immunologic: Allergic/Immunologic: Reports no additional allergic/immunologic complaints and Denies wheezing PMFSH Past Medical History Medical History Bilateral lower abdominal cramping Anxiety Factor V Leiden GERD (gastroesophageal reflux disease) PFO (patent foramen ovale) TIA (transient ischemic attack) Surgical History Surgical History No history of previous surgery Family History Family History Father Arthritis Mother Arthritis Depression Fibromyalgia Social History Social History Smoking status: Never smoker Second hand tobacco smoke exposure: No Alcohol intake: never Substance use: former Substance use type: marijuana Last use: 10/17/21 Living arrangements: with family Gender identity (if verbalized by the patient): Female Spiritual care concerns: No Meds Home Medications and Allergies Home Medications ?Medication ?Instructions ?Recorded ?Confirmed ?Type No Home Medications 08/08/25 08/08/25 H istory Allergies Allergy/AdvReac Type Severity Reaction Status Date / Time No Known Allergies Allergy Verified 08/19/25 07:06 Vital Signs Vital Signs - 24 hr 08/19/25 06:30 Temperature 97.7 F Pulse Rate 70 Respiratory Rate 14 Blood Pressure 110/79 Pulse Oximetry 100 Oxygen Delivery Room Air Exam Const: General: cooperative, healthy appearing, comfortable and no acute distress Orientation/consciousness: oriented to person, oriented to place and oriented to time HENMT: Head: normal to inspection Ears: external ears normal Face/Nose/Sinus: Normal external nose present and normal facial exam Face and sinus: normal facial exam Eyes: General: appearance normal, both eyes and all related structures Neck: Neck: normal visual inspection, trachea midline and supple Resp: Auscultation: clear to auscultation bilaterally, no crackles, no rales, no rhonchi and no wheezes Cardio: Rate: regular rate Rhythm: regular rhythm Heart sounds: no click, no murmurs and no rubs GI: GI Palp: No abdominal tenderness, No Soft to palpation, No Tenderness to palpation present (GI) and No Palpable mass present Auscultation: normal bowel sounds Skin: General skin exam: normal color and no rashes or lesions noted Neuro: General: oriented to person, oriented to place and oriented to time Extrem: General: normal to inspection, no joint enlargement, no clubbing, cyanosis or edema, no pedal edema and no calf tenderness Psych: Appearance: grossly normal Mental Status: mental status grossly normal Speech and movement: Normal speech and movement present Assessment and Plan Assessment and plan (1) Ovarian cyst: Code(s): N83.209 - Unspecified ovarian cyst, unspecified side Status: Acute (2) Endometrial polyp: Code(s): N84.0 - Polyp of corpus uteri Status: Acute (3) Pelvic pain: Code(s): R10.20 - Pelvic and perineal pain unspecified side Status: Acute Plan this patient is a 39-year-old female with abnormal uterine bleeding, endometrial polyp, right ovarian cyst, pelvic pain, unwanted fertility. We discussed these findings. We discussed the etiology, natural history, treatment of ovarian cyst. We talked about the etiology, natural history, treatment of endometrial polyps. Her polyp are symptomatic. Her ovarian cyst is asymptomatic. We agreed to hysteroscopy D and C with polypectomy, laparoscopic right ovarian cystectomy and bilateral salpingectomy. She understands risks, benefits, and alternatives. She has completed informed consent process is ready to proceed.
--- NOTE | 2025-08-19 08:23 | WPDHPUPDATE1 ---
History and Physical Update Update Date/Time: 08/19/25 08:23 History and Physical has been reviewed, including an updated exam of the patient. There are NO changes in the patient's condition. Risks, benefits, and alternatives have been discussed and questions answered. Patient agrees to proceed with procedure.
--- NOTE | 2025-08-19 08:32 | P.PNAN_ITS ---
Anes - Initial Pre Proc Eval Procedure: Operation Date: 08/19/25 08:30 Proposed Procedures p Laparoscopic Bilateral Salpingectomy, Right Ovarian Cystectomy, Hysteroscopy with Biopsy of Endometrium and/or Polypectomy - Valentín Leon MD Date/Time: 08/19/25 08:32 Surgeon: Valentín Leon MD Pre Op Diagnosis: unwantd fertility, endometrial polyp,cyst rt ovary Patient Data Age: 39 Gender: F Height: 1.68 m Weight: 65.8 kg Last Vital Signs Temp 97.7 F 08/19/25 06:30 Pulse 70 08/19/25 06:30 Resp 14 08/19/25 06:30 BP 110/79 08/19/25 06:30 Pulse Ox 100 08/19/25 06:30 O2 Del Method Room Air 08/19/25 06:30 Allergies Allergy/AdvReac Type Severity Reaction Status Date / Time No Known Allergies Allergy Verified 08/19/25 07:06 Home Medications ?Medication ?Instructions ?Recorded ?Confirmed ?Type No Home Medications 08/08/25 08/08/25 H istory Laboratory Tests 08/19/25 06:40 POC Urine HCG, Qual Negative (Negative) Patient hx anesthesia problems: none Family hx anesthesia problems: none Results Review: All pre-operative results and documents have been reviewed as part of the pre- operative evaluation. [facility] Past Medical History Medical History Bilateral lower abdominal cramping Anxiety Factor V Leiden GERD (gastroesophageal reflux disease) PFO (patent foramen ovale) TIA (transient ischemic attack) Surgical History Surgical History No history of previous surgery Family History Family History Father Arthritis Mother Arthritis Depression Fibromyalgia Social History Social History Smoking status: Never smoker Second hand tobacco smoke exposure: No Alcohol intake: never Substance use: former Substance use type: marijuana Last use: 10/17/21 Living arrangements: with family Gender identity (if verbalized by the patient): Female Spiritual care concerns: No Anes - Eval Final PreProcedure Day of Procedure 08/19/25 08:32 Patient weight: normal Lungs: normal air movement Airway: Mallampati scale class 1 Neurological: alert and oriented Last oral intake: >/= 8 hours ASA classification: II Emergent: no Anesthetic plan: proceed Anesthesia type and monitoring: general GIVS and standard monitoring Results Review: All pre-operative results and documents have been reviewed as part of the pre- operative evaluation. Hx of PFO, perc closure approx 2022 at U, factor 5 def noted, without current AC. Pt active, can walk 1-2 fos, no cp or sob. Informed Consent: The patient's anesthetic plan and its attendant risks and benefits were discussed with the patient/family/POA. Questions were solicited and answers provided to the satisfaction of the patient/family/POA.
--- NOTE | 2025-08-19 09:16 | S_PTH ---
PATIENT: Stormy Mckenzie LOC: [facility] U#:[id number] AGE/SX: 39/F ROOM: RE08/19/[address]: Valentín Leon MD : 1985 BED: DIS: 08/19/2025 SPEC #: [id number] RECD: 08/19/25 10:03 STATUS: SOPHIA CAMPUZANO #: [id number] ADRIANNE: 08/19/25 09:[address]: Valentín Leon DEPT: [facility] Surgical RECD BY: Fatou Taylor ENTERED: 08/19/25 10:03 SP TYPE: Surgical OTHR DR: Aguila Dawson MD Tissues: A - Fallopian Tube Bilateral B - Cyst C - Cyst D - Endometrial Curettings Procedures: Gross and Microscopic Level 2 Hematoxylin and Eosin Stain Gross and Microscopic Level 4
--- NOTE | 2025-08-19 09:58 | W.PM.PROC2 ---
Procedure Note - Detailed Date of Procedure 08/19/25 Pre-op Diagnosis unwantd fertility, endometrial polyp,cyst rt ovary Post-op Diagnosis Same (With bilateral ovarian cysts, hemoperitoneum, adhesions) Procedure Performed Laparoscopic Adhesiolysis-15 minutes, laparoscopic bilateral ovarian cystectomy, laparoscopic bilateral salpingectomy, hysteroscopy D&C with polypectomy Surgeon Valentín Leon MD Anesthesia General Indications Unwanted fertility, heavy bleeding Findings Hemoperitoneum, Pelvic adhesions on the left adnexa with tension to the left pelvic sidewall, bilateral ovarian cysts-larger cyst on the right at approximately 3 cm. Thickened endometrium with endometrial polyp. Normal vulva, vagina, cervix. Description of Procedure The patient was taken the operating room. She was prepped and draped in the dorsal lithotomy position after induction of general anesthesia. A 5 mm skin incision was made in the left upper quadrant of the abdominal skin. A 5 mm trocar was inserted the intra-abdominal cavity under direct visualization of the scope. Pneumoperitoneum was achieved. A 5 mm trocar was inserted in the left lower quadrant identical fashion. A 5 mm infraumbilical trocar was inserted in identical fashion as well. The bilateral fallopian tubes were removed. This was done by using a LigaSure cautery. The mesosalpinx adjacent to the tube was cauterized transected with LigaSure. This was initiated in the area the ovary and in a stepwise fashion moved medially to the area of the cornu of the uterus. Once there the fallopian tube was cauterized and transected. This was done in identical fashion on each side. The fallopian tubes were taken out through the left lower quadrant trocar site. Bilateral ovarian cystectomy was performed. This done using cautery and sharp dissection. Cysts were opened and unroofed. The edges were cauterized. Adhesiolysis was performed on the left adnexa. This was done a sharp and blunt dissection using cautery it was from the lateral left pelvic sidewall. The pneumoperitoneum was reduced. The trocars removed. The skin was closed with subcuticular 4 Monocryl and covered with Dermabond. A speculum was placed in the vagina. The cervix was grasped with a tenaculum. The cervix was dilated about 1 cm. The hysteroscope was inserted. The intrauterine cavity and endocervix were evaluated. Hysteroscope was withdrawn. A medium-size curette was used to curettage all the surfaces were within the endometrial cavity. Part of the polyp is still adherent to the endometrial wall. This rotational blade was then used to shave off the remainder of the polyp. The sample was collected on Telfa and sent to pathology. The hysteroscope was reinserted and the above findings were noted. Patient tolerated the procedure well. The speculum and tenaculum were removed. She was taken recovery room in stable condition. Sponge lap and needle counts were correct x2. Estimated Blood Loss 25 Drains No Packing No Pathology Yes Complications No immediate complications Condition Stable Disposition PACU
[2025-08-19] MEDS: fentaNYL CITRATE INJ (*CRX) 100 MCG/2 ML VIAL 25 MCG IV PUSH ×4 (10:13→10:25)
[2025-08-19] MEDS: oxyCODONE HCL (*CRX) 5 MG TAB IR PO (11:10)
== END 2025-08-19 11:50 | disposition home or self-care (01) ==
PROVIDERS: PCP Family Medicine; Visit Provider Obstetrics & Gynecology
PROC: 0UDB8ZZ Extraction of Endometrium, Via Natural or Artificial Opening Endoscopic (ICD-10-PCS; CPT 58558; principal; 2025-08-19 08:30)
DX: Z30.2 Encounter for sterilization (principal); N83.12 Corpus luteum cyst of left ovary; N83.11 Corpus luteum cyst of right ovary; N84.0 Polyp of corpus uteri; N73.6 Female pelvic peritoneal adhesions (postinfective); R93.89 Abnormal findings on diagnostic imaging of other specified body structures; G89.18 Other acute postprocedural pain; K21.9 Gastro-esophageal reflux disease without esophagitis; F41.9 Anxiety disorder, unspecified; D68.51 Activated protein C resistance; Q21.12 Patent foramen ovale; Z86.73 Personal history of transient ischemic attack (TIA), and cerebral infarction without residual deficits
CPT/HCPCS: 58662; 58661; 58558; 88302; 88305; A9270; J1100; J1885; J2003; J2250; J2405; J2704; J3010; J7120

== ENCOUNTER 2025-10-04 16:18 | Emergency (ER) | payer OTHER, SELFPAY ==
[2025-10-04 16:23] VITALS: BP 114/71; PULSE 92; RESP 18; TEMP 36.6; O2SAT 100
--- NOTE | 2025-10-04 16:23 | ED_ITS ---
HPI - URI/Sore Throat General Chief Complaint: Upper Respiratory Infection Stated Complaint: congestion Time Seen by Provider: 10/04/25 16:25 Source: patient, RN notes reviewed and old records reviewed Mode of arrival: ambulatory Limitations: no limitations History of Present Illness HPI Narrative: 40-year-old female presents to the [facility] with 2 week history of congestion. States she thought was getting better and then got worse. Reports green drainage, ears clogged, sinus congestion. Denies any fevers. Has taken Tylenol but no other treatment prior to arrival. Treatments prior to arrival: acetaminophen Related Data Allergies Allergy/AdvReac Type Severity Reaction Status Date / Time No Known Allergies Allergy Verified 10/04/25 16:34 Review of Systems Review of Systems: All systems reviewed & are unremarkable except as noted in HPI and below Constitutional: Constitutional: Reports no additional constitutional complaints ENT: Reports as per HPI Cardiovascular: Cardiovascular: Reports no additional cardiovascular complaints, Denies chest pain and Denies dyspnea Respiratory: Respiratory: Reports no additional respiratory complaints, Denies chest congestion, Denies cough and Denies dyspnea Musculoskeletal: Musculoskeletal: Reports no additional musculoskeletal complaints Integumentary/Breasts: Skin/Breast: Reports system reviewed and no additional complaints, except as docu PMFSH Past Medical History Medical History Bilateral lower abdominal cramping Anxiety Factor V Leiden GERD (gastroesophageal reflux disease) PFO (patent foramen ovale) TIA (transient ischemic attack) Surgical History Surgical History No history of previous surgery Family History Family History Father Arthritis Mother Arthritis Depression Fibromyalgia Social History Social History Smoking status: Never smoker Second hand tobacco smoke exposure: No Alcohol intake: never Substance use: former Substance use type: marijuana Last use: 10/17/21 Living arrangements: with family Gender identity (if verbalized by the patient): Female Spiritual care concerns: No Comments At the time of my signature, I reviewed and agree with the nursing past medical, surgical, social, and family history. There is no relevant family history pertinent to the patient complaint. Exam Const: General: cooperative, healthy appearing, comfortable, no acute di stress, well developed, alert and well nourished Nutritional Appearance: well nourished Orientation/consciousness: patient oriented x3 Limitations: no limitations HENMT: Head: normal to inspection Ears: hearing grossly normal bilaterally, external ears normal, TM's normal bilaterally, EAC's normal, mastoids normal and no periauricular adenopathy Face and sinus: normal facial exam, sinuses nontender and face symmetric Mouth: Yes Normal oral and palatal mucosa present, Yes lip normal, Yes tongue normal and Yes moist mucous membranes Throat: posterior oropharynx normal, uvula midline, postnasal drainage and no uvular edema Eyes: General: appearance normal, both eyes and all related structures Alignment and Position: alignment normal Neck: Neck: normal visual inspection, full ROM, no lymphadenopathy and no meningeal signs Chest: Chest palpation & inspection: normal inspection of the chest Resp: Effort & Inspection: normal respiratory effort and able to speak in complete sentences Auscultation: clear to auscultation bilaterally, no crackles, no rales, no rhonchi and no wheezes Cardio: Rate: regular rate Skin: General skin exam: normal color and no rashes or lesions noted Neuro: General: patient oriented x3, gait normal, moves all extremities and no meningeal signs Cognition (Neuro): normal cognition Speech: normal speech Gait exam (Neuro): Normal gait present Extrem: General: normal to inspection, full ROM, capillary refill normal and normal gait Psych: Appearance: grossly normal and well kempt Mental Status: mental status grossly normal Speech and movement: Normal speech and movement present and Clear speech present Affect: normal affect Attitude: cooperative Course Course Level of Care: Express Care Visit Vital Signs Vital signs: Vital Signs Temperature 97.9 F 10/04/25 16:23 Pulse Rate 92 10/04/25 16:23 Respiratory Rate 18 10/04/25 16:23 Blood Pressure 114/71 10/04/25 16:23 Pulse Oximetry 100 10/04/25 16:23 Oxygen Delivery Room Air 10/04/25 16:23 Temperature 97.9 F 10/04/25 16:23 Pulse Rate 92 10/04/25 16:23 Respiratory Rate 18 10/04/25 16:23 Blood Pressure 114/71 10/04/25 16:23 Pulse Oximetry 100 10/04/25 16:23 Oxygen Delivery Room Air 10/04/25 16:23 reviewed MDM MDM Narrative Medical decision making narrative: Patient sitting exam room. Patient is nontoxic, vitals stable. Patient presents 2 week history of URI symptoms. Most likely viral postnasal drainage. Patient will be covered with antibiotics, discussed with patient she should be using [id number] products as well. Patient appropriate for outpatient treatment with close follow-up Discharge instructions reviewed with patient, as well as provided in writing per nursing staff. The instructions also include specific and strict return/GO TO THE ER as well as f/u information. All questions have been answered, and the patient deny any further questions with discharge and discharge plan. Some parts of this dictation were generated by voice recognition software and may contain typographical and/or grammatical inaccuracies. Differential Diagnosis Differential Diagnosis: Differential diagnostic considerations for upper respiratory infection include upper respiratory infection, croup, otitis media, sinusitis, viral infection, bronchitis, influenza, pharyngitis, strep, uvulitis.? Discharge Plan Discharge Clinical Impression: Sinusitis Patient Disposition: Home Condition: Stable Instructions: Antibiotic Form, Sinusitis (ED) Additional Instructions: It is very important to treat your symptoms. Drink plenty of water, Gatorade, Pedialyte, ice pops or Jell-O. -Alternate Tylenol and Motrin per package directions for fever or pain. You can alternate every 4 hours -Antihistamine medication such as Zyrtec/Claritin/Kemi during the day can help improve symptoms. -doing daily nasal irrigations can help relieve pressure your sinuses. Things like a Neti pot -Use Flonase twice a day for 5 days then daily to help reduce the inflammation and dry up your sinuses. -You can also use Mucinex. Be sure to drink plenty of water with this medication at least 8 ounces with every dose and it is important to drink 8 to 10 glasses of water per day. Water is a natural decongestant -Eat and drink things that are easy to swallow, like tea or soup, or popsicles. -Oral rinses such as: Salt water gargles and/or may use topical anesthetic (eg. Chloraseptic spray) or lozenges to relieve dryness or throat pain). -Frequent hand washing or hand rn otolaryngology is one of the best ways to prevent spread of infection. -Using a vaporizer or humidifier at night will also help thin secretions and help with coughing up phlegm. -Follow up with primary care provider in 7-10 days if condition is not improving - For new or worsening symptoms go directly to the nearest ER Patient Language: Kazakh Prescriptions: New doxycycline monohydrate 100 mg tablet 100 mg PO BID Qty: 14 0RF Follow-up/Referrals: Aguila Dawson MD [Primary Care Provider, Family Practice] - 1 Week Clinical Impression: Sinusitis Stand Alone Forms: Work/School Release IP Time of Disposition: 16:34
== END 2025-10-04 16:38 | disposition home or self-care (01) ==
PROVIDERS: Emergency Provider Nurse Practitioner; PCP Family Medicine
DX: J32.9 Chronic sinusitis, unspecified (principal); D68.51 Activated protein C resistance; K21.9 Gastro-esophageal reflux disease without esophagitis; Z86.73 Personal history of transient ischemic attack (TIA), and cerebral infarction without residual deficits
CPT/HCPCS: 99213; G0463